=== PATIENT | male | born 1965 | race Two or more races ===

== ENCOUNTER 2017-01-26 13:17 | Inpatient (IN) | payer OTHER ==
[2017-01-26 14:04] VITALS: BMI 28.3
--- NOTE | 2017-01-26 20:36 | HP ---
CIWA Score - CIWA Score Nausea/Vomitin-Mild Nausea/No Vomiting Muscle Tremors: 4-Moderate,w/Arms Extend Anxiety: 4-Mod. Anxious/Guarded Agitation: 4-Moderately Restless Paroxysmal Sweats: 1-Minimal Palms Moist Orientation: 1-Uncertain about Date Tacttile Disturbances: 0-None Auditory Disturbances: 0-None Visual Disturbances: 0-None Headache: 0-None Present CIWA-Ar Total Score: 15 Admission ROS BHS - HPI Chief Complaint: withdrawal sx Allergies/Adverse Reactions: Allergies Allergy/AdvReac Type Severity Reaction Status Date / Time No Known Allergies Allergy Verified 01/26/17 20:07 History of Present Illness: 51 years old male with long history of alcohol nicotine dependence has hypertension and bipolar ii is admitted to detox Exam Limitations: No Limitations - Ebola screening Have you traveled outside of the country in the last 21 days: No Have you had contact with anyone from an Ebola affected area: No Have you been sick,other than usual withdrawal symptoms: No Do you have a fever: No - Review of Systems Constitutional: Chills, Changes in sleep, Weight Stable EENT: reports: No Symptoms Reported Respiratory: reports: Productive cough (yellowish) Cardiac: reports: No Symptoms Reported GI: reports: Nausea, Poor Fluid Intake, Indigestion, Abdominal cramping : reports: No Symptoms Reported Musculoskeletal: reports: No Symptoms Reported Integumentary: reports: No Symptoms Reported Neuro: reports: Seizure (01/24/17 last episode), Tremors Endocrine: reports: No Symptoms Reported Hematology: reports: No Symptoms Reported Psychiatric: reports: Judgement Intact, Anxious, Depressed Other Systems: Reviewed and Negative Patient History - Patient Medical History Hx Anemia: No Hx Asthma: No Hx Chronic Obstructive Pulmonary Disease (COPD): No Hx Cancer: No Hx Cardiac Disorders: No Hx Congestive Heart Failure: No Hx Hypertension: Yes Hx Hypercholesterolemia: No Hx Pacemaker: No HX Cerebrovascular Accident: No Hx Seizures: Yes (last 2 days ago) Hx Dementia: No Hx Diabetes: No Hx Gastrointestinal Disorders: No Hx Liver Disease: No Hx Genitourinary Disorders: No Hx Sexually Transmitted Disorders: No Hx Renal Disease (ESRD): No Hx Thyroid Disease: No Hx Human Immunodeficiency Virus (HIV): No Hx Hepatitis C: Yes Hx Depression: No Hx Suicide Attempt: Yes (cut the wrist 2 months ago) Hx Bipolar Disorder: Yes Hx Schizophrenia: No - Patient Surgical History Past Surgical History: No Hx Neurologic Surgery: No Hx Cataract Extraction: No Hx Cardiac Surgery: Yes (Open heart sx 2009) Hx Lung Surgery: No Hx Breast Surgery: No Hx Breast Biopsy: No Hx Abdominal Surgery: No Hx Appendectomy: No Hx Cholecystectomy: No Hx Genitourinary Surgery: No Hx Orthopedic Surgery: No Anesthesia Reaction: No - PPD History Previous Implant?: Yes Documented Results: Negative w/o proof Implanted On Prior [facility] Admission?: No PPD to be Administered?: Yes - Smoking Cessation Smoking history: Current every day smoker Have you smoked in the past 12 months: Yes Aproximately how many cigarettes per day: 1 Cigars Per Day: 0 Hx Chewing Tobacco Use: No Initiated information on smoking cessation: Yes 'Breaking Loose' booklet given: 01/26/17 - Substance & Tx. History Hx Alcohol Use: Yes Hx Substance Use: Yes Substance Use Type: Alcohol, Cocaine, Heroin, Marijuana, Opiates, Tranquilizers Hx Substance Use Treatment: Yes (01/2016 step up) - Substances Abused Alcohol Route: Oral Frequency: Daily Amount used: 1/2 PINT rum Age of first use: 16 Date of Last Use: 01/25/17 Marijuana/Hashish Route: Smoking Frequency: Daily Amount used: 1 BLUNT Age of first use: 16 Date of Last Use: 01/25/17 Benzodiazepine (Klonopin) Route: Oral Frequency: Daily Amount used: 1 mg Age of first use: 20 Date of Last Use: 01/25/17 Family Disease History - Family Disease History Family Disease History: Diabetes: Brother, Heart Disease: Sister, [place]: Father, Other: Mother Admission Physical Exam [facility] - Vital Signs Vital Signs: Vital Signs - 24 hr 01/26/17 14:00 Temperature 97.4 F L Pulse Rate 84 Respiratory 18 Rate Blood Pressure 139/112 - Physical General Appearance: Yes: Nourished, Appropriately Dressed, Mild Distress, Tremorous, Irritable, Sweating, Anxious HEENTM: Yes: Hearing grossly Normal, Normal ENT Inspection, Normocephalic, Normal Voice Respiratory: Yes: Chest Non-Tender, Lungs Clear, Normal Breath Sounds, No Respiratory Distress, No Accessory Muscle Use Neck: Yes: Supple, Trachea in good position Breast: Yes: Breasts Symetrical Cardiology: Yes: Regular Rhythm, Regular Rate, S1, S2 Abdominal: Yes: Non Tender, Soft Genitourinary: Yes: Within Normal Limits Back: Yes: Normal Inspection Musculoskeletal: Yes: full range of Motion, Gait Steady Extremities: Yes: Normal Range of Motion, Non-Tender, Tremors Neurological: Yes: Alert, Motor Strength 5/5, Normal Response, Depressed Affect Integumentary: Yes: Warm Lymphatic: Yes: Within Normal Limits - Diagnostic (1) Sedative, hypnotic or anxiolytic dependence with withdrawal, uncomplicated Current Visit: Yes Status: Acute (2) Alcohol dependence with uncomplicated withdrawal Current Visit: Yes Status: Acute (3) Methadone maintenance therapy patient Current Visit: Yes Status: Chronic Comment: 140 mg verification pending (4) Hepatitis C antibody test positive Current Visit: Yes Status: Chronic Comment: schedule to treat (5) Hypertension Current Visit: Yes Status: Chronic Qualifiers: Hypertension type: essential hypertension Qualified Code(s): I10 - Essential (primary) hypertension (6) Nicotine dependence Current Visit: Yes Status: Acute Qualifiers: Nicotine product type: cigarettes Substance use status: in withdrawal Qualified Code(s): F17.213 - Nicotine dependence, cigarettes, with withdrawal (7) Positive PPD, treated Current Visit: Yes Status: Resolved (8) Bipolar II disorder Current Visit: Yes Status: Suspected (9) S/P mitral valve replacement Current Visit: Yes Status: Resolved Cleared for Admission S - Detox or Rehab [facility] Level of Care: Medically Managed Detox Regimen/Protocol: Valium [facility] Breath Alcohol Content Breath Alcohol Content: 0 Urine Drug Screen - Results Drug Screen Negative: No Urine Drug Screen Results: THC-Marijuana, OPI-Opiates, BZO-Benzodiazepines, MTD- Methadone
[2017-01-26] MEDS ORDERED: MAGNESIUM CITRATE 300 ML BOTTLE PO PRN (20:43)
[2017-01-26] MEDS ORDERED: NICOTINE POLACRILEX 2 MG GUM BC PRN (20:43)
[2017-01-26] MEDS ORDERED: diphenhydrAMINE HCL 50 MG CAPSULE PO PRN (20:43)
[2017-01-26] MEDS ORDERED: diazePAM 5 MG TABLET PO ONE (20:43)
[2017-01-26] MEDS ORDERED: MAG HYDROX/AL HYDROX/SIMETH 30 ML UNIT-DOSE CUP PO PRN (20:43)
[2017-01-26] MEDS ORDERED: P-EPHED 60MG/TRIPROLIDI 2.5MG TABLET PO PRN (20:43)
[2017-01-26] MEDS ORDERED: LOPERAMIDE HCL 2 MG CAPSULE PO PRN (20:43)
[2017-01-26] MEDS ORDERED: MAGNESIUM HYDROX 2400MG/30ML ORAL SUSPENSION 30 ML CUP PO PRN (20:43)
[2017-01-26] MEDS: THIAMINE HCL 100 MG TABLET (FP) PO SCH (21:19)
[2017-01-26] MEDS: cloNIDine HCL 0.1 MG TABLET PO PRN (21:25)
[2017-01-26] MEDS: diazePAM 5 MG TABLET PO SCH (21:26)
[2017-01-27] MEDS: cloNIDine HCL 0.1 MG TABLET PO PRN (05:40)
[2017-01-27] MEDS: diazePAM 5 MG TABLET PO SCH ×3 (05:41→22:31)
[2017-01-27] MEDS ORDERED: METHADONE HCL 10 MG TABLET PO ONE (08:30)
[2017-01-27] MEDS ORDERED: METHADONE 120 MG, METHADONE 20 MG PO ONE (08:40)
[2017-01-27] MEDS ORDERED: METHADONE HCL 40 MG DISPERSABLE TABLET ONE (09:52)
[2017-01-27] MEDS ORDERED: METHADONE HCL 10 MG TABLET ONE (09:52)
[2017-01-27 09:55] LABS: MCH 31.9 pg (25.7-33.7); MCHC 32.9 g/dl (32.0-35.9); MEAN CELL VOLUME 96.9 fl (80-96); MEAN PLT VOLUME 8.7 fl (7.5-11.1); PLATELET COUNT 160 K/MM3 (134-434); RDW 14.1 % (11.9-15.9); WHITE BLOOD COUNT 5.2 K/mm3 (4.0-10.0)
[2017-01-27] MEDS ORDERED: DIVALPROEX SODIUM 250 MG TABLET E.C. (FP) PO SCH (10:00)
--- NOTE | 2017-01-27 10:05 | CONSULT ---
[facility] Psychiatric Consult - Data Date of interview: 01/27/17 Admission source: [facility] Identifying data: This is 51 years old male with psychiatric hospiytalization history, history of Bipolar disorder, intoxicated with: Alcohol, Klonopin. Cannabis and Nicotine, Opioids Substance Abuse History: - Smoking Cessation. Smoking history: Current every day smoker. Have you smoked in the past 12 months: Yes. Aproximately how many cigarettes per day: 1. Cigars Per Day: 0. Hx Chewing Tobacco Use: No. Initiated information on smoking cessation: Yes. 'Breaking Loose' booklet given : 01/26/17. - Substance & Tx. History. Hx Alcohol Use: Yes. Hx Substance Use : Yes. Substance Use Type: Alcohol, Cocaine, Heroin, Marijuana, Opiates, Tranquilizers. Hx Substance Use Treatment: Yes (01/2016 step up). - Substances Abused. Alcohol. Route: Oral. Frequency: Daily. Amount used: 1 /2 PINT rum. Age of first use: 16. Date of Last Use: 01/25/17. Marijuana/ Hashish. Route: Smoking. Frequency: Daily. Amount used: 1 BLUNT. Age of first use: 16. Date of Last Use: 01/25/17. Benzodiazepine (Klonopin). Route: Oral. Frequency: Daily. Amount used: 1 mg. Age of first use: 20. Date of Last Use: 01/25/17 Medical History: HepC+, PPD+ history, s/p Mitral Valve replacement, MMTP 140MG PER DAY Psychiatric History: Patient reports history of Bipolar Disorder with most recent psychiatric admission on 2015 after incident with his father and following suicidal attempt-was trying to jump trought the windows, reports no msuicidal history since then. Patient reports taking prior to admission: Wellbutrin XI 150mg poqd. Trazodone 50mg po qhs Physical/Sexual Abuse/Trauma History: Denies Additional Comment: Wellbutrin XI 150mg poqd. Trazodone 50mg po qhs Mental Status Exam - Mental Status Exam Alert and Oriented to: Person Cognitive Function: Fair Patient Appearance: Unkempt Mood: Anxious Affect: Mood Congruent Patient Behavior: Cooperative Speech Pattern: Appropriate Voice Loudness: Normal Thought Process: Goal Oriented Thought Disorder: Being Controlled Hallucinations: Denies Suicidal Ideation: Denies Homicidal Ideation: Denies Insight/Judgement: Fair Sleep: Difficulty falling asleep Appetite: Fair Muscle strength/Tone: Normal Gait/Station: Normal Additional Comments: Wellbutrin XI 150mg poqd. Trazodone 50mg po qhs Psychiatric Findings - Problem List ([place] 1, 2,3) (1) Alcohol dependence with uncomplicated withdrawal Current Visit: Yes Status: Acute (2) Nicotine dependence Current Visit: Yes Status: Acute Qualifiers: Nicotine product type: cigarettes Substance use status: in withdrawal Qualified Code(s): F17.213 - Nicotine dependence, cigarettes, with withdrawal (3) Sedative, hypnotic or anxiolytic dependence with withdrawal, uncomplicated Current Visit: Yes Status: Acute (4) Methadone maintenance therapy patient Current Visit: Yes Status: Chronic Comment: 140 mg verification pending (5) Bipolar II disorder Current Visit: Yes Status: Suspected (6) Drug-induced mood disorder Current Visit: Yes Status: Acute - Initial Treatment Plan Initial Treatment Plan: Wellbutrin XI 150mg poqd. Trazodone 50mg po qhs
[2017-01-27 10:06] LABS: ALBUMIN 2.9 g/dl (3.4-5.0); ANION GAP 7 (8-16); CALCIUM 8.7 mg/dL (8.5-10.1); CO2 29 mmol/L (21-32); GLUCOSE,RANDOM 93 mg/dL (74-106)
[2017-01-27 10:11] LABS: ALK PHOS 117 U/L (45-117); BILIRUBIN,TOTAL 0.4 mg/dL (0.2-1.0); COCKROFT - GAULT 94.39; CREATININE 0.9 mg/dL (0.7-1.3); SGOT/AST 58 U/L (15-37); SGPT/ALT 59 U/L (12-78)
[2017-01-27] MEDS: PRENATAL VITAMINS W/ FOLIC ACID TABLET (FP) PO SCH (10:20)
[2017-01-27] MEDS: ASPIRIN 81 MG CHEWABLE TABLETS PO SCH (10:20)
[2017-01-27] MEDS: NICOTINE 14 MG/24 HOURS TOPICAL PATCH TD SCH (10:20)
[2017-01-27] MEDS: diazePAM 5 MG TABLET PO PRN (10:24)
--- NOTE | 2017-01-27 10:36 | EKG ---
Test Reason : Blood Pressure : / mmHG Vent. Rate : 076 BPM Atrial Rate : 076 BPM P-R Int : 148 ms QRS Dur : 138 ms QT Int : 454 ms P-R-T Axes : 068 046 022 degrees QTc Int : 510 ms NORMAL SINUS RHYTHM WITH SINUS ARRHYTHMIA POSSIBLE LEFT ATRIAL ENLARGEMENT RIGHT BUNDLE BRANCH BLOCK T WAVE ABNORMALITY, CONSIDER LATERAL ISCHEMIA ABNORMAL ECG NO PREVIOUS ECGS AVAILABLE Confirmed by SLADE WU MD ([id number]) on 01/27/2017 10:36:27 AM Referred By: Confirmed By:SLADE WU MD
--- NOTE | 2017-01-27 10:36 | EKG ---
Test Reason : Blood Pressure : / mmHG Vent. Rate : 067 BPM Atrial Rate : 067 BPM P-R Int : 156 ms QRS Dur : 136 ms QT Int : 470 ms P-R-T Axes : 074 053 039 degrees QTc Int : 496 ms SINUS RHYTHM WITH MARKED SINUS ARRHYTHMIA POSSIBLE LEFT ATRIAL ENLARGEMENT RIGHT BUNDLE BRANCH BLOCK ABNORMAL ECG WHEN COMPARED WITH ECG OF 26-JAN-2017 20:29, NONSPECIFIC T WAVE ABNORMALITY HAS REPLACED INVERTED T WAVES IN ANTERIOR LEADS Confirmed by SLADE WU MD ([id number]) on 01/27/2017 10:36:36 AM Referred By: Confirmed By:SLADE WU MD
[2017-01-27 11:14] LABS: HIV 1 & 2 AB NEGATIVE; HIV 1 AGp24 NEGATIVE
--- NOTE | 2017-01-27 11:31 | PN ---
[facility] CIWA - CIWA Score Nausea/Vomitin-No Nausea/No Vomiting Muscle Tremors: 5 Anxiety: 5 Agitation: 5 Paroxysmal Sweats: 1-Minimal Palms Moist Orientation: 0-Oriented Tacttile Disturbances: 3-Moderate Itch/Numb/Burn Auditory Disturbances: 0-None Visual Disturbances: 0-None Headache: 0-None Present CIWA-Ar Total Score: 19 S Progress Note (SOAP) Subjective: ANXIETY,IRRITABILITY,RESTLESSNESS,TREMORS, INTERMITTENT SLEEP. Objective: 01/27/17 11:30 Vital Signs Temperature 96.2 F L 01/27/17 10:23 Pulse Rate 74 01/27/17 10:23 Respiratory Rate 18 01/27/17 10:23 Blood Pressure 163/104 01/27/17 10:23 O2 Sat by Pulse Oximetry (%) Laboratory Last Values WBC 5.2 K/mm3 (4.0-10.0) 01/27/17 07:00 RBC 4.49 M/mm3 (4.00-5.60) 01/27/17 07:00 Hgb 14.3 GM/dL (11.7-16.9) 01/27/17 07:00 Hct 43.5 % (35.4-49) 01/27/17 07:00 MCV 96.9 fl (80-96) H 01/27/17 07:00 MCHC 32.9 g/dl (32.0-35.9) 01/27/17 07:00 RDW 14.1 % (11.9-15.9) 01/27/17 07:00 Plt Count 160 K/MM3 (134-434) 01/27/17 07:00 MPV 8.7 fl (7.5-11.1) 01/27/17 07:00 Sodium 139 mmol/L (136-145) 01/27/17 07:00 Potassium 4.0 mmol/L (3.5-5.1) 01/27/17 07:00 Chloride 103 mmol/L (98-107) 01/27/17 07:00 Carbon Dioxide 29 mmol/L (21-32) 01/27/17 07:00 Anion Gap 7 (8-16) L 01/27/17 07:00 BUN 28 mg/dL (7-18) H 01/27/17 07:00 Creatinine 0.9 mg/dL (0.7-1.3) 01/27/17 07:00 Creat Clearance w eGFR > 60 (>60) 01/27/17 07:00 Random Glucose 93 mg/dL (74-106) 01/27/17 07:00 Calcium 8.7 mg/dL (8.5-10.1) 01/27/17 07:00 Total Bilirubin 0.4 mg/dL (0.2-1.0) 01/27/17 07:00 AST 58 U/L (15-37) H 01/27/17 07:00 ALT 59 U/L (12-78) 01/27/17 07:00 Alkaline Phosphatase 117 U/L (45-117) 01/27/17 07:00 Total Protein 7.0 g/dl (6.4-8.2) 01/27/17 07:00 Albumin 2.9 g/dl (3.4-5.0) L 01/27/17 07:00 HIV 1&2 Antibody Screen Negative 01/27/17 07:00 HIV P24 Antigen Negative 01/27/17 07:00 Assessment: 01/27/17 11:30 WITHDRAWAL SX Plan: CONTINUE DETOX INCREASE PO FLUIDS.
[2017-01-27] MEDS ORDERED: MIRTAZAPINE 15 MG TABLET (FP) PO SCH (22:00)
[2017-01-27] MEDS ORDERED: cloNIDine HCL 0.1 MG TABLET PO SCH ×2 (22:00)
[2017-01-27] MEDS: THIAMINE HCL 100 MG TABLET (FP) PO SCH (22:31)
[2017-01-27] MEDS: traZODone HCL 100 MG TABLET (FP) PO SCH (22:31)
[2017-01-27] MEDS: MENTHOL/PHENOL 1 EACH UD MM PRN (22:32)
[2017-01-28] MEDS ORDERED: METHADONE HCL 40 MG DISPERSABLE TABLET ONE (04:15)
[2017-01-28] MEDS ORDERED: METHADONE HCL 10 MG TABLET ONE (04:15)
[2017-01-28] MEDS: METHADONE 120 MG, METHADONE 20 MG PO SCH (05:37)
[2017-01-28] MEDS: diazePAM 5 MG TABLET PO PRN ×2 (05:37→12:36)
[2017-01-28] MEDS ORDERED: METHADONE HCL 10 MG TABLET PO SCH (06:00)
[2017-01-28] MEDS ORDERED: amLODIPine BESYLATE 5 MG TABLET (FP) PO SCH (07:15)
--- NOTE | 2017-01-28 07:21 | PN ---
[facility] Progress Note Note: PT SEEN FOR ON GOING HTN CLIENT REPORTS H/O BUT DENIES ASSOC. SX'S CHENG, N/V/, DIZZINESS, C.P. , SOB HAS BEEN ON CLONIDINE SINCE ADMISSION WILL START ON NORVASC 5 MG DAILY C/W CLONIDINE 0.1 MG PRN FOR UNRELIEVED OPIATE WITHDRAWAL SX'S Vital Signs (72 hours) 01/26/17 01/26/17 01/27/17 14:00 22:13 00:45 Temperature 97.4 F L 97 F L Pulse Rate 84 83 Respiratory 18 20 18 Rate Blood Pressure 139/112 160/102 01/27/17 01/27/17 01/27/17 03:30 06:56 10:23 Temperature 97.2 F L 96.2 F L Pulse Rate 75 74 Respiratory 18 18 18 Rate Blood Pressure 177/107 163/104 01/27/17 01/27/17 01/27/17 13:34 14:05 18:19 Temperature 96.2 F L 96.2 F L 97.5 F L Pulse Rate 68 68 73 Respiratory 18 16 18 Rate Blood Pressure 113/78 113/78 105/75 01/27/17 01/28/17 01/28/17 22:09 00:30 03:30 Temperature 96.7 F L Pulse Rate 75 Respiratory 16 18 18 Rate Blood Pressure 116/87 01/28/17 06:30 Temperature 96.4 F L Pulse Rate 75 Respiratory 18 Rate Blood Pressure 169/115
[2017-01-28] MEDS ORDERED: amLODIPine BESYLATE 5 MG TABLET (FP) PO ONE (08:00)
[2017-01-28] MEDS: ACETAMINOPHEN 325 MG TABLET (FP) PO PRN ×2 (08:02→12:36)
[2017-01-28] MEDS: PRENATAL VITAMINS W/ FOLIC ACID TABLET (FP) PO SCH (09:57)
[2017-01-28] MEDS: ASPIRIN 81 MG CHEWABLE TABLETS PO SCH (09:57)
[2017-01-28] MEDS: diazePAM 5 MG TABLET PO SCH ×2 (09:57→22:16)
[2017-01-28] MEDS: NICOTINE 14 MG/24 HOURS TOPICAL PATCH TD SCH (09:58)
--- NOTE | 2017-01-28 09:58 | PN ---
S CIWA - CIWA Score Nausea/Vomitin-Mild Nausea/No Vomiting Muscle Tremors: 4-Moderate,w/Arms Extend Anxiety: 4-Mod. Anxious/Guarded Agitation: 3 Paroxysmal Sweats: 3 Orientation: 0-Oriented Tacttile Disturbances: 0-None Auditory Disturbances: 0-None Visual Disturbances: 0-None Headache: 0-None Present CIWA-Ar Total Score: 15 BHS Progress Note (SOAP) Subjective: Anxiety,tremors,sweating,interrupted sleep,restless. Objective: 01/28/17 09:56 Vital Signs - 8 hr 01/28/17 01/28/17 03:30 06:30 Temperature 96.4 F L Pulse Rate 75 Respiratory 18 18 Rate Blood Pressure 169/115 Laboratory Tests 01/27/17 01/27/17 01/27/17 07:00 07:00 07:00 WBC 5.2 RBC 4.49 Hgb 14.3 Hct 43.5 MCV 96.9 H MCHC 32.9 RDW 14.1 Plt Count 160 MPV 8.7 Sodium 139 Potassium 4.0 Chloride 103 Carbon Dioxide 29 Anion Gap 7 L BUN 28 H Creatinine 0.9 Creat Clearance w eGFR > 60 Random Glucose 93 Calcium 8.7 Total Bilirubin 0.4 AST 58 H ALT 59 Alkaline Phosphatase 117 Total Protein 7.0 Albumin 2.9 L RPR Titer HIV 1&2 Antibody Screen Negative HIV P24 Antigen Negative 01/27/17 07:00 WBC RBC Hgb Hct MCV MCHC RDW Plt Count MPV Sodium Potassium Chloride Carbon Dioxide Anion Gap BUN Creatinine Creat Clearance w eGFR Random Glucose Calcium Total Bilirubin AST ALT Alkaline Phosphatase Total Protein Albumin RPR Titer Nonreactive HIV 1&2 Antibody Screen HIV P24 Antigen labs noted Assessment: 01/28/17 09:57 Withdrawal sx. Plan: Continue detox Increase norvasc to bid
[2017-01-28 13:04] LABS: URINE APPEARANCE CLEAR; URINE BILIRUBIN NEGATIVE (NEGATIVE); URINE BLOOD NEGATIVE (NEGATIVE); URINE COLOR LTYELLOW; URINE GLUCOSE (UA) NEGATIVE (NEGATIVE); URINE KETONE NEGATIVE (NEGATIVE); URINE LEUK ESTERASE NEGATIVE (NEGATIVE); URINE NITRITE NEGATIVE (NEGATIVE); URINE PROTEIN NEGATIVE (NEGATIVE); URINE UROBILINOGEN NEGATIVE E.U./dl (0.2-1.0)
[2017-01-28] MEDS: THIAMINE HCL 100 MG TABLET (FP) PO SCH (22:16)
[2017-01-28] MEDS: traZODone HCL 100 MG TABLET (FP) PO SCH (22:16)
[2017-01-28] MEDS: amLODIPine BESYLATE 5 MG TABLET (FP) PO SCH (22:16)
[2017-01-29] MEDS ORDERED: METHADONE HCL 10 MG TABLET ONE (04:42)
[2017-01-29] MEDS ORDERED: METHADONE HCL 40 MG DISPERSABLE TABLET ONE (04:42)
[2017-01-29] MEDS: METHADONE 120 MG, METHADONE 20 MG PO SCH (05:30)
[2017-01-29] MEDS: diazePAM 5 MG TABLET PO PRN ×2 (05:30→17:24)
[2017-01-29] MEDS: guaiFENesin/D-METHORPHAN HB 10 ML UNIT-DOSE CUPS PO PRN ×2 (05:31→22:29)
[2017-01-29] MEDS: cloNIDine HCL 0.1 MG TABLET PO PRN ×2 (06:10→22:29)
[2017-01-29] MEDS ORDERED: amLODIPine BESYLATE 5 MG TABLET (FP) PO SCH (10:00)
[2017-01-29] MEDS: PRENATAL VITAMINS W/ FOLIC ACID TABLET (FP) PO SCH (10:27)
[2017-01-29] MEDS: NICOTINE 14 MG/24 HOURS TOPICAL PATCH TD SCH (10:27)
[2017-01-29] MEDS: amLODIPine BESYLATE 5 MG TABLET (FP) PO SCH ×2 (10:27→22:29)
[2017-01-29] MEDS: diazePAM 5 MG TABLET PO SCH ×2 (10:27→22:29)
[2017-01-29] MEDS: ASPIRIN 81 MG CHEWABLE TABLETS PO SCH (10:27)
--- NOTE | 2017-01-29 20:10 | PN ---
[facility] Progress Note (SOAP) Subjective: Tremors, Sweating. Objective: PT. A & O X 3, OBSERVED AMBULATING ON UNIT. NO ACUTE DISTRESS. PT. DENIES CHEST PAIN. 01/29/17 20:08 Vital Signs Temperature 96.8 F L 01/29/17 17:43 Pulse Rate 77 01/29/17 17:43 Respiratory Rate 16 01/29/17 17:43 Blood Pressure 104/64 01/29/17 17:43 O2 Sat by Pulse Oximetry (%) Laboratory Tests 01/27/17 01/27/17 01/27/17 07:00 07:00 07:00 WBC 5.2 RBC 4.49 Hgb 14.3 Hct 43.5 MCV 96.9 H MCHC 32.9 RDW 14.1 Plt Count 160 MPV 8.7 Sodium 139 Potassium 4.0 Chloride 103 Carbon Dioxide 29 Anion Gap 7 L BUN 28 H Creatinine 0.9 Creat Clearance w eGFR > 60 Random Glucose 93 Calcium 8.7 Total Bilirubin 0.4 AST 58 H ALT 59 Alkaline Phosphatase 117 Total Protein 7.0 Albumin 2.9 L Urine Color Urine Appearance Urine pH Ur Specific [place] Urine Protein Urine Glucose (UA) Urine Ketones Urine Blood Urine Nitrite Urine Bilirubin Urine Urobilinogen Ur Leukocyte Esterase RPR Titer HIV 1&2 Antibody Screen Negative HIV P24 Antigen Negative 01/27/17 01/28/17 07:00 10:00 WBC RBC Hgb Hct MCV MCHC RDW Plt Count MPV Sodium Potassium Chloride Carbon Dioxide Anion Gap BUN Creatinine Creat Clearance w eGFR Random Glucose Calcium Total Bilirubin AST ALT Alkaline Phosphatase Total Protein Albumin Urine Color Ltyellow Urine Appearance Clear Urine pH 5.0 Ur Specific [place] 1.010 Urine Protein Negative Urine Glucose (UA) Negative Urine Ketones Negative Urine Blood Negative Urine Nitrite Negative Urine Bilirubin Negative Urine Urobilinogen Negative Ur Leukocyte Esterase Negative RPR Titer Nonreactive HIV 1&2 Antibody Screen HIV P24 Antigen LABS NOTED. Assessment: 01/29/17 20:08 WITHDRAWAL SYMPTOMS. 01/29/17 20:09 Plan: CONTINUE DETOX. ADVISED PATIENT TO FOLLOWUP WITH HELP DESK REP AFTER DISCHARGE FROM DETOX FOR GENERAL MEDICAL ASSESSMENT AND FOR ELEVATED ADMISSION AST AND BUN LEVELS.
[2017-01-29] MEDS: MENTHOL/PHENOL 1 EACH UD MM PRN (22:29)
[2017-01-29] MEDS: traZODone HCL 100 MG TABLET (FP) PO SCH (22:29)
[2017-01-29] MEDS: THIAMINE HCL 100 MG TABLET (FP) PO SCH (22:29)
[2017-01-30] MEDS ORDERED: METHADONE HCL 10 MG TABLET ONE (03:10)
[2017-01-30] MEDS ORDERED: METHADONE HCL 40 MG DISPERSABLE TABLET ONE (03:11)
[2017-01-30] MEDS: cloNIDine HCL 0.1 MG TABLET PO PRN (05:41)
[2017-01-30] MEDS: METHADONE 120 MG, METHADONE 20 MG PO SCH (05:41)
[2017-01-30 06:51] VITALS: BP 131/92; PULSE 83; TEMP 98
[2017-01-30] MEDS ORDERED: diazePAM 5 MG TABLET PO SCH (10:00)
--- NOTE | 2017-01-30 11:56 | DS ---
[facility] Detox Discharge Summary Admission Date: 01/26/17 Discharge Date: 01/30/17 - History Present History: Alcohol Dependence, Sedative Dependence, MMTP Pertinent Past History: HTN Seizure disorder Hepatitis C - Physical Exam Results Vital Signs: Vital Signs Temperature 98.0 F 01/30/17 06:50 Pulse Rate 83 01/30/17 06:50 Respiratory Rate 20 01/30/17 06:50 Blood Pressure 131/92 01/30/17 06:50 O2 Sat by Pulse Oximetry (%) Pertinent Admission Physical Exam Findings: Withdrawal symptoms Laboratory Tests 01/27/17 01/27/17 01/27/17 07:00 07:00 07:00 WBC 5.2 RBC 4.49 Hgb 14.3 Hct 43.5 MCV 96.9 H MCHC 32.9 RDW 14.1 Plt Count 160 MPV 8.7 Sodium 139 Potassium 4.0 Chloride 103 Carbon Dioxide 29 Anion Gap 7 L BUN 28 H Creatinine 0.9 Creat Clearance w eGFR > 60 Random Glucose 93 Calcium 8.7 Total Bilirubin 0.4 AST 58 H ALT 59 Alkaline Phosphatase 117 Total Protein 7.0 Albumin 2.9 L Urine Color Urine Appearance Urine pH Ur Specific [place] Urine Protein Urine Glucose (UA) Urine Ketones Urine Blood Urine Nitrite Urine Bilirubin Urine Urobilinogen Ur Leukocyte Esterase RPR Titer HIV 1&2 Antibody Screen Negative HIV P24 Antigen Negative 01/27/17 01/28/17 07:00 10:00 WBC RBC Hgb Hct MCV MCHC RDW Plt Count MPV Sodium Potassium Chloride Carbon Dioxide Anion Gap BUN Creatinine Creat Clearance w eGFR Random Glucose Calcium Total Bilirubin AST ALT Alkaline Phosphatase Total Protein Albumin Urine Color Ltyellow Urine Appearance Clear Urine pH 5.0 Ur Specific [place] 1.010 Urine Protein Negative Urine Glucose (UA) Negative Urine Ketones Negative Urine Blood Negative Urine Nitrite Negative Urine Bilirubin Negative Urine Urobilinogen Negative Ur Leukocyte Esterase Negative RPR Titer Nonreactive HIV 1&2 Antibody Screen HIV P24 Antigen Labs noted: bun 28; noted with azotemia and encouraged to drink lots of water - Treatment Hospital Course: Detox Protocol Followed, Detoxed Safely, Responded well, Discharged Condition Good - Medication Discharge Medications: Ambulatory Orders Bupropion HCl [Bupropion HCl Sr] 150 mg PO DAILY 01/26/17 Clonazepam [Klonopin] 1 mg PO BID 01/26/17 Trazodone HCl [Desyrel -] 50 mg PO HS 01/26/17 Bupropion HCl [Wellbutrin Xl -] 150 mg PO DAILY #30 tab 01/27/17 Divalproex [Depakote -] 250 mg PO BID #60 tab 01/27/17 Mirtazapine [Remeron -] 15 mg PO HS #30 tablet 01/27/17 Trazodone HCl [Desyrel -] 100 mg PO HS #30 tablet 01/27/17 - Diagnosis (1) Alcohol dependence with uncomplicated withdrawal Status: Acute (2) Nicotine dependence Status: Chronic Qualifiers: Nicotine product type: cigarettes Substance use status: in withdrawal Qualified Code(s): F17.213 - Nicotine dependence, cigarettes, with withdrawal (3) Sedative, hypnotic or anxiolytic dependence with withdrawal, uncomplicated Status: Acute (4) Hepatitis C antibody test positive Status: Chronic (5) Hypertension Status: Chronic Qualifiers: Hypertension type: essential hypertension Qualified Code(s): I10 - Essential (primary) hypertension (6) Methadone maintenance therapy patient Status: Chronic (7) Azotemia Status: Acute (8) Bipolar II disorder Status: Chronic (9) Seizure Status: Acute - AMA Did Patient Leave Against Medical Advice: No
== END 2017-01-30 09:46 | disposition home or self-care (01) | DRG 773 ==
LOC: YASAS 13:17 → Y3N 19:51
PROVIDERS: ADMIT Internal Medicine; ATTEND Internal Medicine
PROC: HZ2ZZZZ Detoxification Services for Substance Abuse Treatment (ICD-10-PCS; principal; 2017-01-26)
DX: F10.230 Alcohol dependence with withdrawal, uncomplicated (principal); F11.20 Opioid dependence, uncomplicated; F13.230 Sedative, hypnotic or anxiolytic dependence with withdrawal, uncomplicated; F19.24 Other psychoactive substance dependence with psychoactive substance-induced mood disorder; F17.210 Nicotine dependence, cigarettes, uncomplicated; F31.81 Bipolar II disorder; B18.2 Chronic viral hepatitis C; I10 Essential (primary) hypertension; R76.11 Nonspecific reaction to tuberculin skin test without active tuberculosis; R79.89 Other specified abnormal findings of blood chemistry; Z86.69 Personal history of other diseases of the nervous system and sense organs; Z95.2 Presence of prosthetic heart valve; Z91.5 Personal history of self-harm; Z59.0 Homelessness
CPT/HCPCS: 36415; 71020-TC; 80053; 81003; 85027; 86593; 87389; 93005; 93010

== ENCOUNTER 2020-05-17 12:13 | Inpatient (IN) | payer OTHER ==
--- OUTSIDE RECORDS SUMMARY | 2020-05-17 12:18 | XMS ---
:1965 [facility] Support Name Relationship Address Phone UE Unavailable Unavailable Unavailable ALLISON CURIEL SISTER N/A [place] [id number] Re-disclosure Warning The records that you are about to access may contain information from federally- assisted alcohol or drug abuse programs. If such information is present, then the following federally mandated warning applies: This information has been disclosed to you from records protected by federal confidentiality rules (42 CFR part 2). The federal rules prohibit you from making any further disclosure of this information unless further disclosure is expressly permitted by the written consent of the person to whom it pertains or as otherwise permitted by 42 CFR part 2. A general authorization for the release of medical or other information is NOT sufficient for this purpose. The Federal rules restrict any use of the information to criminally investigate or prosecute any alcohol or drug abuse patient.The records that you are about to access may contain highly sensitive health information, the redisclosure of which is protected by Article 27-F of the [facility] Public Health law. If you continue you may haveaccess to information: Regarding HIV / AIDS; Provided by facilities licensed or operated by the [facility] Office of Mental Health; or Provided by the [facility] Office for People With Developmental Disabilities. If such information is present, then the following [facility] mandated warning applies: This information has been disclosed to you from confidential records which are protected by state law. State law prohibits you from making any further disclosure of this information without the specific written consent of the person to whom it pertains, or as otherwise permitted by law. Any unauthorized further disclosure in violation of state law may result in a fine or fpc sentence or both. A general authorization for the release of medical or other information is NOT sufficient authorization for further disclosure. Insurance Providers Payer name Policy type Policy ID Covered Covered green party's Policy P carolin / Coverage green party ID relationship to [employer] type [facility] [id number] [address] [place] [address] NON CAP
--- NOTE | 2020-05-17 17:15 | BHS.RME ---
Substance Use & Tx History - Substance Use History Alcohol Substance amount: 6 of 44 0zs beer Frequency of use: Daily Substance route: Oral Date of Last Use: 05/17/20 Cocaine- Powder Frequency of use: Once a month Substance route: Inhalation (ex: sniffing or snorting) Date of Last Use: 05/15/20 - Last Treatment Date of last treatment: 02/2020 [facility] not completed Where was last treatment: Detox
--- NOTE | 2020-05-17 17:42 | HP ---
CIWA Score Nausea/Vomitin Muscle Tremors: 3 Anxiety: 3 Agitation: 3 Paroxysmal Sweats: 1-Minimal Palms Moist Orientation: 0-Oriented Tacttile Disturbances: 1-Very Mild Itch/Numbness Auditory Disturbances: 0-None Visual Disturbances: 0-None Headache: 2-Mild CIWA-Ar Total Score: 15 - Admission Criteria OASAS Guidelines: Admission for Medically Managed Detox: Requires at least one of the followin. CIWA greater than 12 2. Seizures within the past 24 hours 3. Delirium tremens within the past 24 hours 4. Hallucinations within the past 24 hours 5. Acute intervention needed for co occurring medical disorder 6. Acute intervention needed for co occurring psychiatric disorder 7. Severe withdrawal that cannot be handled at a lower level of care (continued vomiting, continued diarrhea, abnormal vital signs) requiring intravenous medication and/or fluids 8. Admitting History and Physical - Admission Chief Complaint: i need help to stop drinking alcohol History of Present Illness: this 54 years old male with alcohol dependence cocaine abused,heroin abused,mmtp 130 mgs/day,last medicated today, History Source: Patient Limitations to Obtaining History: No Limitations - Past Medical History Cardiovascular: Yes: HTN, Hyperlipdemia Hepatobiliary: Yes: Hepatitis C Psych: Yes: Bipolar - Past Surgical History Additional Past Surgical History: opn heart surgery in 2010 cut tendon righr wrist in 2017 with deformity - Smoking History Smoking history: Current every day smoker Have you smoked in the past 12 months: Yes Aproximately how many cigarettes per day: 1 - Alcohol/Substance Use Hx Alcohol Use: Yes - Social History Usual Living Arrangement: Yes: Other (snf) Do you think of yourself as: Straight/Heterosexual Occupation: unemployed History of Recent Travel: No Other Social History: unemployed,living in the snf,denied legal issue,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 Admission ROS BHS - HPI Chief Complaint: i need help to stop drinking alcohol,cocaine ,heroin abused,on bezo prescribed Allergies/Adverse Reactions: Allergies Allergy/AdvReac Type Severity Reaction Status Date / Time No Known Allergies Allergy Verified 05/17/20 19:17 History of Present Illness: this 54 years old male with alcohol dependence,cocaine abused,heroin abused,on methadone maintenance 130 mgs/day,last medicated today at [facility], seen in [facility] last night,possible seizure or syncope i stop shoed patient is on clonazepam 1 mg po tid last filled on 04/21/2020 90 tablet hypertension,hypercholesterolemia, s/p open heart surgery in 2009 a [facility] s/p surgery for cut of right tendon right wrist with deformity no significant period of sobriety patient understood that he will get methadone 20 mgs po at 0600 on Tuesday05/18/20 until able to verify to dose by his methadone program unable to verify his medications on his pharmacy Exam Limitations: No Limitations - Ebola screening Have you traveled outside of the country in the last 21 days: No Have you had contact with anyone from an Ebola affected area: No Have you been sick,other than usual withdrawal symptoms: No Do you have a fever: No - Review of Systems Constitutional: Malaise, Night Sweats, Changes in sleep EENT: reports: Nose Congestion Respiratory: reports: No Symptoms reported Cardiac: reports: No Symptoms Reported GI: reports: Nausea, Poor Appetite, Abdominal cramping : reports: No Symptoms Reported Musculoskeletal: reports: Back Pain, Muscle Pain Integumentary: reports: Dryness Neuro: reports: Tremors Endocrine: reports: No Symptoms Reported Hematology: reports: No Symptoms Reported Psychiatric: reports: No Sypmtoms Reported, Judgement Intact, Mood/Affect Appropiate, Orientated x3, other (biploar disorder) Patient History - Patient Medical History Hx Anemia: No Hx Asthma: No Hx Chronic Obstructive Pulmonary Disease (COPD): No Hx Cancer: No Hx Cardiac Disorders: Yes (open heart surgery in ) Hx Congestive Heart Failure: No Hx Hypertension: Yes Hx Hypercholesterolemia: No Hx Pacemaker: No HX Cerebrovascular Accident: No Hx Seizures: Yes (last night seen in [place]) Hx Dementia: No Hx Diabetes: No Hx Gastrointestinal Disorders: No Hx Liver Disease: No Hx Genitourinary Disorders: No Hx Sexually Transmitted Disorders: No Hx Renal Disease (ESRD): No Hx Thyroid Disease: No Hx Human Immunodeficiency Virus (HIV): No Hx Hepatitis C: Yes Hx Depression: No Hx Suicide Attempt: Yes (cut the wrist right 2017 cut the tendon) Hx Bipolar Disorder: Yes Hx Schizophrenia: No Other Medical History: no suicidal,no hiomicidal - Patient Surgical History Past Surgical History: No Hx Neurologic Surgery: No Hx Cataract Extraction: No Hx Cardiac Surgery: Yes ( Open herat surgery in 2009 at [facility]) Hx Lung Surgery: No Hx Breast Surgery: No Hx Breast Biopsy: No Hx Abdominal Surgery: No Hx Appendectomy: No Hx Cholecystectomy: No Hx Genitourinary Surgery: No Hx Section: No Hx Orthopedic Surgery: Yes (cut tedon of right wrist in 2017 treated at [facility]) Anesthesia Reaction: No - PPD History Previous Implant?: Yes Documented Results: Negative w/o proof Implanted On [facility] Admission?: No PPD to be Administered?: Yes - Smoking Cessation Smoking history: Current every day smoker Have you smoked in the past 12 months: Yes Aproximately how many cigarettes per day: 1 Cigars Per Day: 0 Hx Chewing Tobacco Use: No Initiated information on smoking cessation: Yes 'Breaking Loose' booklet given: 05/17/20 - Substance & Tx. History Hx Alcohol Use: Yes Hx Substance Use: Yes Substance Use Type: Alcohol, Cocaine Hx Substance Use Treatment: Yes (09.10 [facility] not [facility]) - Substances abused Alcohol Substance route: Oral Frequency: Daily Amount used: 6 of 44 ozs of beer Age of first use: 14 Date of last use: 05/17/20 Cocaine Substance route: Inhalation Frequency: 1-3 times last 30 days (10$) Amount used: 10$ Age of first use: 16 Date of last use: 05/15/20 Heroin Substance route: Inhalation Frequency: 1-2 times per week Amount used: 1 bag Age of first use: 16 Date of last use: 05/15/20 Admission Physical Exam BHS - Vital Signs Vital Signs: bp 118/77,p92,r18,t95.6,pulse ox 98%,ankur 0,12 - Physical General Appearance: Yes: Moderate Distress, Tremorous, Irritable, Anxious HEENTM: Yes: Normal ENT Inspection, LILIAN, Pharynx Normal Respiratory: Yes: Lungs Clear, Normal Breath Sounds, No Respiratory Distress Neck: Yes: Within Normal Limits, Supple, Trachea in good position Breast: Yes: Within Normal Limits Cardiology: Yes: Within Normal Limits, Regular Rate, S1, S2, Murmur, Surgical Scar (midsterna scar) Abdominal: Yes: Within Normal Limits, Normal Bowel Sounds, Non Tender, Flat, Soft Genitourinary: Yes: Within Normal Limits Back: Yes: Muscle Spasm Musculoskeletal: Yes: Back pain, Muscle Pain Extremities: Yes: Tremors Neurological: Yes: fleet sales associate II-XII NML intact, Fully Oriented, Alert, Motor Strength 5/5 Integumentary: Yes: Dry Lymphatic: Yes: Within Normal Limits - Diagnostic (1) Alcohol dependence with uncomplicated withdrawal Current Visit: No Status: Acute (2) Seizure Current Visit: No Status: Acute (3) Bipolar II disorder Current Visit: No Status: Chronic (4) Hypertension Current Visit: No Status: Chronic Qualifiers: Hypertension type: essential hypertension Qualified Code(s): I10 - Essential (primary) hypertension (5) Methadone maintenance therapy patient Current Visit: No Status: Chronic Comment: 140 mg verification pending (6) Nicotine dependence Current Visit: No Status: Chronic Qualifiers: Nicotine product type: cigarettes Substance use status: in withdrawal Qualified Code(s): F17.213 - Nicotine dependence, cigarettes, with withdrawal (7) History of open heart surgery Current Visit: Yes Status: Acute (8) Hepatitis C Current Visit: Yes Status: Acute (9) Cocaine abuse Current Visit: Yes Status: Acute (10) Heroin abuse Current Visit: Yes Status: Acute Cleared for Admission S - Detox or Rehab [facility] Level of Care: Medically Managed Detox Regimen/Protocol: Librium Inpatient Rehab Admission - Rehab Decision to Admit Inpatient rehab admission?: No
[2020-05-17] MEDS ORDERED: METHOCARBAMOL 500 MG TABLET PO PRN (18:18)
[2020-05-17] MEDS ORDERED: IBUPROFEN 400 MG TABLET (FP) PO PRN (18:18)
[2020-05-17] MEDS ORDERED: ONDANSETRON *ODT* 4 MG TABLET SL PRN (18:18)
[2020-05-17] MEDS ORDERED: MAGNESIUM HYDROX 2400MG/30ML ORAL SUSPENSION 30 ML CUP PO PRN (18:18)
[2020-05-17] MEDS ORDERED: ACETAMINOPHEN 325 MG TABLET (FP) PO PRN ×2 (18:18)
[2020-05-17] MEDS ORDERED: BISMUTH SUBSALICYLATE 524 MG/30 ML UD PO PRN (18:18)
[2020-05-17] MEDS ORDERED: MAGNESIUM CITRATE 300 ML BOTTLE PO PRN (18:18)
[2020-05-17] MEDS ORDERED: MAG HYDROX/AL HYDROX/SIMETH 30 ML UNIT-DOSE CUP PO PRN (18:18)
[2020-05-17] MEDS ORDERED: chlordiazePOXIDE HCL 25 MG CAPSULE PO PRN (18:18)
[2020-05-17] MEDS ORDERED: MENTHOL/PHENOL 1 EACH UD MM PRN (18:18)
[2020-05-17 18:21] VITALS: BMI 26.3
--- OUTSIDE RECORDS SUMMARY | 2020-05-17 19:17 | XMS ---
:1965 [facility] Organization [facility] Support Name Relationship Address Phone UE Unavailable Unavailable Unavailable ALLISON CURIEL SISTER N/A [place] [phone] Re-disclosure Warning The records that you are [...] is protected by Article 27-F of the [facility] Public Health law. If you continue you may haveaccess to information: Regarding HIV / AIDS; Provided by facilities licensed or operated by the [facility] Office of Mental Health; or Provided by the [facility] Office for People With Developmental Disabilities. If such information is present, then the following [facility] mandated warning applies: This information has been [...] law may result in a fine or nursing home sentence or both. A general authorization for the release of medical or other information is NOT sufficient authorization for further disclosure. Insurance Providers Payer name Policy type Policy ID Covered Covered green party's Policy P carolin / Coverage green party ID relationship to [employer] ormation type marshall [facility] [id number] [address] [place] [id number] NON CAP
[2020-05-17] MEDS: chlordiazePOXIDE HCL 25 MG CAPSULE PO SCH (22:07)
[2020-05-17] MEDS: MELATONIN 5 MG TABLETS PO SCH (22:07)
[2020-05-17] MEDS: hydrOXYzine PAMOATE 25 MG CAPSULE (FP) PO SCH (22:07)
[2020-05-17] MEDS: THIAMINE HCL 100 MG TABLET (FP) PO SCH (22:07)
[2020-05-18] MEDS ORDERED: METHADONE HCL 10 MG TABLET PO ONE (06:00)
[2020-05-18] MEDS: chlordiazePOXIDE HCL 25 MG CAPSULE PO SCH ×4 (06:48→22:19)
[2020-05-18] MEDS: hydrOXYzine PAMOATE 25 MG CAPSULE (FP) PO SCH ×5 (06:48→22:19)
[2020-05-18] MEDS: PRENATAL VITAMINS W/ FOLIC ACID TABLET (FP) PO SCH (10:32)
[2020-05-18 11:59] LABS: HEMATOCRIT 47.7 % (35.4-49); HEMOGLOBIN 15.8 GM/dL (11.7-16.9); MCH 31.6 pg (25.7-33.7); MCHC 33.1 g/dl (32.0-35.9); MEAN CELL VOLUME 95.7 fl (80-96); MEAN PLT VOLUME 8.8 fl (7.5-11.1); PLATELET COUNT 192 K/MM3 (134-434); RBC 4.98 M/mm3 (4.00-5.60); RDW 13.6 % (11.9-15.9); WHITE BLOOD COUNT 8.2 K/mm3 (4.0-10.0)
[2020-05-18 12:09] LABS: ALBUMIN 3.2 g/dl (3.4-5.0); BILIRUBIN,TOTAL 0.7 mg/dL (0.2-1); BLOOD UREA NITROGEN 22.3 mg/dL (7-18); CALCIUM 8.8 mg/dL (8.5-10.1); POTASSIUM 3.9 mmol/L (3.5-5.1); TOT PROT 7.4 g/dl (6.4-8.2)
--- NOTE | 2020-05-18 14:19 | CONSULT ---
[facility] Psychiatric Consult - Data Date of interview: 05/18/20 Admission source: [facility] Identifying data: Patient is a 54 year old male, father of two, unemployed, resides in an [facility] facility, and is not currently supported with financial assistance. This is one of multiple admissions for patient. Patient admitted to for alcohol dependence. Substance Abuse History: Smoking Cessation. Smoking history: Current every day smoker. Have you smoked in the past 12 months: Yes. Aproximately how many cigarettes per day: 1. Cigars Per Day: 0. Hx Chewing Tobacco Use: No. Initiated information on smoking cessation: Yes. 'Breaking Loose' booklet given: 05/17/20. - Substance & Tx. History. Hx Alcohol Use: Yes. Hx Substance Use: Yes. Substance Use Type: Alcohol, Cocaine. Hx Substance Use Treatment: Yes (09.10 [facility] not completed). - Substances abused. Alcohol. Substance route: Oral. Frequency: Daily. Amount used: 6 of 44 ozs of beer. Age of first use: 14. Date of last use: 05/17/20. Cocaine. Substance route: Inhalation. Frequency: 1-3 times last 30 days (10$). Amount used: 10$. Age of first use: 16. Date of last use: 05/15/20. Heroin. Substance route: Inhalation. Frequency: 1-2 times per week. Amount used: 1 bag. Age of first use: 16. Date of last use: 05/15/20 Medical History: History of open heart surgery, and seizures. Psychiatric History: Patient denies history of psychiatric hospitalizations. Mr. Marte reports seeing a psychiatrist in [place], [place] who he states prescribes him klonopin. Patient reports history of one suicide attempt by attempting to jump out of a window but states that he was stopped by relatives. At present patient reports difficulty sleeping. Physical/Sexual Abuse/Trauma History: denies. Mental Status Exam - Mental Status Exam Alert and Oriented to: Time, Place, Person Cognitive Function: Good Patient Appearance: Well Groomed Mood: Withdrawn Affect: Mood Congruent Patient Behavior: Cooperative Speech Pattern: Appropriate Voice Loudness: Normal Thought Process: Intact, Goal Oriented Thought Disorder: Not Present Hallucinations: Denies Suicidal Ideation: Denies Homicidal Ideation: Denies Insight/Judgement: Poor Sleep: Poorly Appetite: Fair Muscle strength/Tone: Normal Gait/Station: Normal Psychiatric Findings - Problem List ([place] 1, 2,3) (1) Substance induced mood disorder Current Visit: Yes Status: Acute (2) Cocaine abuse Current Visit: Yes Status: Acute (3) Alcohol dependence with uncomplicated withdrawal Current Visit: Yes Status: Acute (4) Methadone maintenance therapy patient Current Visit: Yes Status: Chronic Comment: 140 mg verification pending (5) Nicotine dependence Current Visit: Yes Status: Chronic Qualifiers: Nicotine product type: cigarettes Substance use status: in withdrawal Qualified Code(s): F17.213 - Nicotine dependence, cigarettes, with withdrawal (6) Substance-induced sleep disorder Current Visit: Yes Status: Acute - Initial Treatment Plan Initial Treatment Plan: Psychoeducation provided. Detoxification in progress. Will order Belsorma 10mg HS PRN. Benefits and side effects discussed. Verbal consent given.
--- NOTE | 2020-05-18 14:42 | PN ---
S CIWA - CIWA Score Nausea/Vomitin-Mild Nausea/No Vomiting Muscle Tremors: 2 Anxiety: 2 Agitation: 1-Slight > Activity Paroxysmal Sweats: 1-Minimal Palms Moist Orientation: 0-Oriented Tacttile Disturbances: 0-None Auditory Disturbances: 0-None Visual Disturbances: 2-Mild Sensitivity Headache: 1-Very Mild CIWA-Ar Total Score: 10 BHS Progress Note (SOAP) Subjective: 54 years old male was admitted on 05/17/20 for alcohol withdrawal sx mangement treating with librium detox regiment mr naqvi states that he is taking methadone 120 mg po daily and he was at [facility] two days ago "they gave me 120 methadone" discuss tuesday closing methadone nurse will verify dosage tomorrow mr naqvi refuses to discuss days in [facility] and for what Objective: 05/18/20 14:43 Vital Signs - 24 hr 05/17/20 05/17/20 05/18/20 18:20 20:16 06:38 Temperature 95.6 F L 97.3 F L 98.1 F Pulse Rate 92 H 84 54 L Respiratory 18 18 18 Rate Blood Pressure 118/77 156/104 H 136/98 O2 Sat by Pulse 98 97 Oximetry (%) 05/18/20 05/18/20 08:47 12:49 Temperature 97.1 F L 96.4 F L Pulse Rate 70 71 Respiratory 18 18 Rate Blood Pressure 126/88 141/96 O2 Sat by Pulse 99 Oximetry (%) Laboratory Tests 05/18/20 05/18/20 05/18/20 07:30 07:30 07:30 WBC 8.2 RBC 4.98 Hgb 15.8 Hct 47.7 MCV 95.7 MCH 31.6 MCHC 33.1 RDW 13.6 Plt Count 192 MPV 8.8 Sodium 138 Potassium 3.9 Chloride 102 Carbon Dioxide 29 Anion Gap 7 L BUN 22.3 H Creatinine 1.0 Est GFR (CKD-EPI)AfAm 97.08 Est GFR (CKD-EPI)NonAf 83.76 Random Glucose 87 Calcium 8.8 Total Bilirubin 0.7 AST 19 ALT 20 Alkaline Phosphatase 85 Total Protein 7.4 Albumin 3.2 L Syphilis Serology Non-reactive 05/18/20 14:44 covid pending Assessment: 05/18/20 14:44 alcohol withdrawal Plan: librium regiment
--- NOTE | 2020-05-18 15:11 | EKG ---
Test Reason : Blood Pressure : / mmHG Vent. Rate : 080 BPM Atrial Rate : 080 BPM P-R Int : 126 ms QRS Dur : 140 ms QT Int : 462 ms P-R-T Axes : 068 042 013 degrees QTc Int : 532 ms SINUS RHYTHM WITH MARKED SINUS ARRHYTHMIA RIGHT BUNDLE BRANCH BLOCK ABNORMAL ECG WHEN COMPARED WITH ECG OF 27-JAN-2017 05:38, NO SIGNIFICANT CHANGE WAS FOUND Confirmed by MD Blayne, Renny ([id number]) on 05/18/2020 3:10:56 PM Referred By: Confirmed By:Renny Cisneros MD
[2020-05-18] MEDS: MELATONIN 5 MG TABLETS PO SCH (22:19)
[2020-05-18] MEDS: THIAMINE HCL 100 MG TABLET (FP) PO SCH (22:19)
[2020-05-19] MEDS: chlordiazePOXIDE HCL 25 MG CAPSULE PO SCH ×4 (05:55→22:17)
[2020-05-19] MEDS: hydrOXYzine PAMOATE 25 MG CAPSULE (FP) PO SCH ×5 (05:55→22:16)
[2020-05-19] MEDS ORDERED: METHADONE 40 MG, METHADONE 20 MG PO ONE (09:30)
[2020-05-19] MEDS ORDERED: METHADONE HCL 40 MG DISPERSABLE TABLET ONE (09:43)
[2020-05-19] MEDS ORDERED: METHADONE HCL 10 MG TABLET ONE (09:43)
--- NOTE | 2020-05-19 09:44 | PN ---
[facility] CIWA - CIWA Score Nausea/Vomitin-No Nausea/No Vomiting Muscle Tremors: 1-None Visible, but [place] Anxiety: 3 Agitation: 1-Slight > Activity Paroxysmal Sweats: No Perspiration Orientation: 0-Oriented Tacttile Disturbances: 0-None Auditory Disturbances: 0-None Visual Disturbances: 2-Mild Sensitivity Headache: 0-None Present CIWA-Ar Total Score: 7 S Progress Note (SOAP) Subjective: 54 years old male was admitted on 05/17/20 for alcohol withdrawal sx management treating with librium detox regiment had open heart surgery 2011 "two valves replacement and two stents" mr naqvi states that he was in the pharmacy "last week" 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 his "home nurse" not available for him therefore he "did not take" his medications keno writer/runner called [phone] and [phone] without success as per nurse report list of home medications obtained from methadone program xarelto 20 mg po od furosemide 40mg po od K+ 3.9 metoprolol succinale 50mg po od Vital Signs - 24 hr 05/18/20 05/18/20 05/18/20 12:49 16:43 20:42 Temperature 96.4 F L 97.3 F L 96.8 F L Pulse Rate 71 98 H 99 H Respiratory 18 18 18 Rate Blood Pressure 141/96 132/90 155/96 O2 Sat by Pulse 99 99 99 Oximetry (%) 05/18/20 05/19/20 05/19/20 23:22 06:19 09:06 Temperature 97.1 F L 97.4 F L Pulse Rate 93 H 72 75 Respiratory 18 18 Rate Blood Pressure 136/91 139/86 150/110 H O2 Sat by Pulse 100 100 Oximetry (%) lisinopril 10 mg po od bp elevation resume antihypertensive medications Objective: 05/19/20 09:56 Laboratory Tests 05/18/20 05/18/20 05/18/20 07:30 07:30 07:30 WBC 8.2 RBC 4.98 Hgb 15.8 Hct 47.7 MCV 95.7 MCH 31.6 MCHC 33.1 RDW 13.6 Plt Count 192 MPV 8.8 Sodium 138 Potassium 3.9 Chloride 102 Carbon Dioxide 29 Anion Gap 7 L BUN 22.3 H Creatinine 1.0 Est GFR (CKD-EPI)AfAm 97.08 Est GFR (CKD-EPI)NonAf 83.76 Random Glucose 87 Calcium 8.8 Total Bilirubin 0.7 AST 19 ALT 20 Alkaline Phosphatase 85 Total Protein 7.4 Albumin 3.2 L Syphilis Serology Non-reactive 05/19/20 09:57 covid pending Assessment: 05/19/20 09:57 alcohol withdrawal 05/19/20 09:57 taking methadone 130 mg po daily last dose 05/15/20 05/19/20 09:59 received methadone 20mg po on 05/18/20 around 6 am resume methadone 60mg now and will assess toxicity for possible 70mg later as per patient agreement Plan: librium regiment
[2020-05-19] MEDS: PRENATAL VITAMINS W/ FOLIC ACID TABLET (FP) PO SCH (09:49)
[2020-05-19] MEDS ORDERED: FUROSEMIDE 40 MG TABLET (FP) PO SCH (10:00)
[2020-05-19] MEDS ORDERED: LISINOPRIL 10 MG TABLET PO SCH (10:00)
[2020-05-19] MEDS ORDERED: METHADONE HCL 10 MG TABLET PO ONE ×3 (10:00→14:15)
[2020-05-19] MEDS ORDERED: RIVAROXABAN 20 MG TABLET PO SCH (10:00)
[2020-05-19] MEDS: FUROSEMIDE 40 MG TABLET (FP) PO SCH (10:03)
[2020-05-19] MEDS: LISINOPRIL 10 MG TABLET PO SCH (10:04)
[2020-05-19] MEDS: RIVAROXABAN 20 MG TABLET PO SCH (22:16)
[2020-05-19] MEDS: MELATONIN 5 MG TABLETS PO SCH (22:16)
[2020-05-19] MEDS: THIAMINE HCL 100 MG TABLET (FP) PO SCH (22:17)
[2020-05-19] MEDS: SUVOREXANT 10 MG TABLET PO PRN (22:19)
[2020-05-20] MEDS ORDERED: chlordiazePOXIDE HCL 10 MG CAPSULE PO PRN
[2020-05-20] MEDS: hydrOXYzine PAMOATE 25 MG CAPSULE (FP) PO SCH ×5 (05:21→22:05)
[2020-05-20] MEDS: chlordiazePOXIDE HCL 10 MG CAPSULE PO SCH ×4 (05:21→22:05)
[2020-05-20] MEDS ORDERED: METHADONE HCL 10 MG TABLET ONE (05:22)
[2020-05-20] MEDS: METHADONE 120 MG, METHADONE 10 MG PO SCH (05:23)
[2020-05-20] MEDS ORDERED: METHADONE HCL 40 MG DISPERSABLE TABLET ONE (05:23)
[2020-05-20] MEDS ORDERED: METHADONE 80 MG, METHADONE 10 MG PO SCH (06:00)
[2020-05-20] MEDS ORDERED: METHADONE HCL 10 MG TABLET PO SCH (06:00)
[2020-05-20] MEDS ORDERED: MASKS NR ONE (08:16)
[2020-05-20] MEDS: FUROSEMIDE 40 MG TABLET (FP) PO SCH (10:34)
[2020-05-20] MEDS: LISINOPRIL 10 MG TABLET PO SCH (10:34)
[2020-05-20] MEDS: PRENATAL VITAMINS W/ FOLIC ACID TABLET (FP) PO SCH (10:34)
--- NOTE | 2020-05-20 10:50 | PN ---
S CIWA - CIWA Score Nausea/Vomitin-No Nausea/No Vomiting Muscle Tremors: 2 Anxiety: 2 Agitation: 2 Paroxysmal Sweats: No Perspiration Orientation: 0-Oriented Tacttile Disturbances: 0-None Auditory Disturbances: 0-None Visual Disturbances: 0-None Headache: 1-Very Mild CIWA-Ar Total Score: 7 S Progress Note (SOAP) Subjective: alert,irritable,anxious,interrupted sleep,aching pain,no chest pain,no sob,no dizziness,ambulation on the unit Objective: 05/20/20 17:02 Vital Signs Temperature 96.9 F L 05/20/20 13:07 Pulse Rate 78 05/20/20 13:07 Respiratory Rate 18 05/20/20 13:07 Blood Pressure 134/64 05/20/20 13:07 O2 Sat by Pulse Oximetry (%) 100 05/20/20 13:07 Assessment: 05/20/20 17:02 withdrawal symptom Plan: continue detox librium regimen,continue methadone maintenance 130 mgs po daily,close monitoring
[2020-05-20] MEDS: HYDROCORTISONE 0.5% TOPICAL CREAM 30 GM TUBE TP SCH ×2 (12:11→22:05)
[2020-05-20] MEDS ORDERED: METHADONE HCL 10 MG TABLET PO ONE (13:30)
[2020-05-20] MEDS ORDERED: NICOTINE POLACRILEX 2 MG GUM BUC PRN (14:21)
[2020-05-20] MEDS: RIVAROXABAN 20 MG TABLET PO SCH (17:21)
[2020-05-20] MEDS: THIAMINE HCL 100 MG TABLET (FP) PO SCH (22:05)
[2020-05-20] MEDS: MELATONIN 5 MG TABLETS PO SCH (22:05)
[2020-05-20] MEDS: SUVOREXANT 10 MG TABLET PO PRN (22:07)
[2020-05-21] MEDS ORDERED: METHADONE HCL 10 MG TABLET ONE (04:25)
[2020-05-21] MEDS ORDERED: METHADONE HCL 40 MG DISPERSABLE TABLET ONE (04:25)
[2020-05-21] MEDS: chlordiazePOXIDE HCL 10 MG CAPSULE PO SCH ×2 (05:37→18:34)
[2020-05-21] MEDS: METHADONE 120 MG, METHADONE 10 MG PO SCH (05:38)
[2020-05-21] MEDS: hydrOXYzine PAMOATE 25 MG CAPSULE (FP) PO SCH ×5 (05:38→22:36)
[2020-05-21] MEDS ORDERED: METHADONE HCL 10 MG TABLET PO SCH (06:00)
[2020-05-21] MEDS: LISINOPRIL 10 MG TABLET PO SCH (10:15)
[2020-05-21] MEDS: FUROSEMIDE 40 MG TABLET (FP) PO SCH (10:15)
[2020-05-21] MEDS: HYDROCORTISONE 0.5% TOPICAL CREAM 30 GM TUBE TP SCH ×2 (10:15→22:37)
[2020-05-21] MEDS: PRENATAL VITAMINS W/ FOLIC ACID TABLET (FP) PO SCH (10:16)
--- NOTE | 2020-05-21 12:55 | PN ---
S CIWA - CIWA Score Nausea/Vomitin-No Nausea/No Vomiting Muscle Tremors: None Anxiety: 1-Mildly Anxious Agitation: 1-Slight > Activity Paroxysmal Sweats: No Perspiration Orientation: 0-Oriented Tacttile Disturbances: 1-Very Mild Itch/Numbness Auditory Disturbances: 0-None Visual Disturbances: 0-None Headache: 2-Mild CIWA-Ar Total Score: 5 BHS Progress Note (SOAP) Subjective: alert,irritable,anxious,interrupted sleep,aching pain Objective: 05/21/20 17:24 Vital Signs Temperature 97.8 F 05/21/20 15:35 Pulse Rate 61 05/21/20 15:35 Respiratory Rate 16 05/21/20 15:35 Blood Pressure 106/75 05/21/20 15:35 O2 Sat by Pulse Oximetry (%) 98 05/21/20 15:35 Assessment: 05/21/20 17:24 withdrawal symptom Plan: continue detox librium regimen,continue methadone maintenance 130 mgs/day,discharge in am
[2020-05-21] MEDS: RIVAROXABAN 20 MG TABLET PO SCH (18:34)
[2020-05-21] MEDS: THIAMINE HCL 100 MG TABLET (FP) PO SCH (22:36)
[2020-05-21] MEDS: MELATONIN 5 MG TABLETS PO SCH (22:36)
[2020-05-22] MEDS ORDERED: chlordiazePOXIDE HCL 10 MG CAPSULE PO ONE (05:00)
[2020-05-22] MEDS ORDERED: METHADONE HCL 10 MG TABLET ONE (05:13)
[2020-05-22] MEDS ORDERED: METHADONE HCL 40 MG DISPERSABLE TABLET ONE (05:13)
[2020-05-22] MEDS: hydrOXYzine PAMOATE 25 MG CAPSULE (FP) PO SCH ×2 (05:43→09:23)
[2020-05-22] MEDS: METHADONE 120 MG, METHADONE 10 MG PO SCH (05:44)
[2020-05-22] MEDS: FUROSEMIDE 40 MG TABLET (FP) PO SCH (09:23)
[2020-05-22] MEDS: PRENATAL VITAMINS W/ FOLIC ACID TABLET (FP) PO SCH (09:23)
[2020-05-22] MEDS: LISINOPRIL 10 MG TABLET PO SCH (09:23)
[2020-05-22] MEDS: HYDROCORTISONE 0.5% TOPICAL CREAM 30 GM TUBE TP SCH (09:24)
[2020-05-22 09:45] VITALS: BP 136/99; PULSE 69; TEMP 96.6
--- NOTE | 2020-05-22 10:27 | PN ---
[facility] CIWA - CIWA Score Nausea/Vomitin-No Nausea/No Vomiting Muscle Tremors: None Anxiety: 1-Mildly Anxious Agitation: 0-Normal Activity Paroxysmal Sweats: No Perspiration Orientation: 0-Oriented Tacttile Disturbances: 0-None Auditory Disturbances: 0-None Visual Disturbances: 0-None Headache: 0-None Present CIWA-Ar Total Score: 1 S Progress Note (SOAP) Subjective: alert,no complaint Objective: 05/22/20 12:15 Vital Signs Temperature 96.6 F L 05/22/20 08:33 Pulse Rate 69 05/22/20 08:33 Respiratory Rate 18 05/22/20 08:33 Blood Pressure 136/99 05/22/20 08:33 O2 Sat by Pulse Oximetry (%) 99 05/22/20 06:29 05/22/20 12:15 Laboratory Last Values WBC 8.2 K/mm3 (4.0-10.0) 05/18/20 07:30 RBC 4.98 M/mm3 (4.00-5.60) 05/18/20 07:30 Hgb 15.8 GM/dL (11.7-16.9) 05/18/20 07:30 Hct 47.7 % (35.4-49) 05/18/20 07:30 MCV 95.7 fl (80-96) 05/18/20 07:30 MCH 31.6 pg (25.7-33.7) 05/18/20 07:30 MCHC 33.1 g/dl (32.0-35.9) 05/18/20 07:30 RDW 13.6 % (11.9-15.9) 05/18/20 07:30 Plt Count 192 K/MM3 (134-434) 05/18/20 07:30 MPV 8.8 fl (7.5-11.1) 05/18/20 07:30 Sodium 138 mmol/L (136-145) 05/18/20 07:30 Potassium 3.9 mmol/L (3.5-5.1) 05/18/20 07:30 Chloride 102 mmol/L (98-107) 05/18/20 07:30 Carbon Dioxide 29 mmol/L (21-32) 05/18/20 07:30 Anion Gap 7 MMOL/L (8-16) L 05/18/20 07:30 BUN 22.3 mg/dL (7-18) H 05/18/20 07:30 Creatinine 1.0 mg/dL (0.55-1.3) 05/18/20 07:30 Est GFR (CKD-EPI)AfAm 97.08 05/18/20 07:30 Est GFR (CKD-EPI)NonAf 83.76 05/18/20 07:30 Random Glucose 87 mg/dL (74-106) 05/18/20 07:30 Calcium 8.8 mg/dL (8.5-10.1) 05/18/20 07:30 Total Bilirubin 0.7 mg/dL (0.2-1) 05/18/20 07:30 AST 19 U/L (15-37) 05/18/20 07:30 ALT 20 U/L (13-61) 05/18/20 07:30 Alkaline Phosphatase 85 U/L (45-117) 05/18/20 07:30 Total Protein 7.4 g/dl (6.4-8.2) 05/18/20 07:30 Albumin 3.2 g/dl (3.4-5.0) L 05/18/20 07:30 Syphilis Serology Non-reactive (NONREACTIVE) 05/18/20 07:30 COVID-19 (FENG) Not detected 05/17/20 19:50 Assessment: 05/22/20 12:16 detox completed,no withdrawal symptom Plan: continue detox librium regimen,continue methadone 130 mgs po daily maintenance,follow up with [facility] arrangement
--- NOTE | 2020-05-22 12:23 | DS ---
[facility] Detox Discharge Summary Admission Date: 05/17/20 Discharge Date: 05/22/20 - History Present History: Alcohol Dependence, Cocaine Dependence, MMTP Additional Comments: alert,oriented x 3 ambulation on the unit lung clear on auscultation bilaterally abdomen soft,no distension,no pain and tenderness stable for discharge,detox completed,no withdrawal symptom follow up with after care program [facility] arrangement total time spending on discharge 35 minutes left the unit in stable condition Pertinent Past History: heroin abused hepatitis c history of open heart surgery hypertension history of mitral valve replacement - Physical Exam Results Vital Signs: Vital Signs Temperature 96.6 F L 05/22/20 08:33 Pulse Rate 69 05/22/20 08:33 Respiratory Rate 18 05/22/20 08:33 Blood Pressure 136/99 05/22/20 08:33 O2 Sat by Pulse Oximetry (%) 99 05/22/20 06:29 Pertinent Admission Physical Exam Findings: withdrawal signs and symptom Laboratory Last Values WBC 8.2 K/mm3 (4.0-10.0) 05/18/20 07:30 RBC 4.98 M/mm3 (4.00-5.60) 05/18/20 07:30 Hgb 15.8 GM/dL (11.7-16.9) 05/18/20 07:30 Hct 47.7 % (35.4-49) 05/18/20 07:30 MCV 95.7 fl (80-96) 05/18/20 07:30 MCH 31.6 pg (25.7-33.7) 05/18/20 07:30 MCHC 33.1 g/dl (32.0-35.9) 05/18/20 07:30 RDW 13.6 % (11.9-15.9) 05/18/20 07:30 Plt Count 192 K/MM3 (134-434) 05/18/20 07:30 MPV 8.8 fl (7.5-11.1) 05/18/20 07:30 Sodium 138 mmol/L (136-145) 05/18/20 07:30 Potassium 3.9 mmol/L (3.5-5.1) 05/18/20 07:30 Chloride 102 mmol/L (98-107) 05/18/20 07:30 Carbon Dioxide 29 mmol/L (21-32) 05/18/20 07:30 Anion Gap 7 MMOL/L (8-16) L 05/18/20 07:30 BUN 22.3 mg/dL (7-18) H 05/18/20 07:30 Creatinine 1.0 mg/dL (0.55-1.3) 05/18/20 07:30 Est GFR (CKD-EPI)AfAm 97.08 05/18/20 07:30 Est GFR (CKD-EPI)NonAf 83.76 05/18/20 07:30 Random Glucose 87 mg/dL (74-106) 05/18/20 07:30 Calcium 8.8 mg/dL (8.5-10.1) 05/18/20 07:30 Total Bilirubin 0.7 mg/dL (0.2-1) 05/18/20 07:30 AST 19 U/L (15-37) 05/18/20 07:30 ALT 20 U/L (13-61) 05/18/20 07:30 Alkaline Phosphatase 85 U/L (45-117) 05/18/20 07:30 Total Protein 7.4 g/dl (6.4-8.2) 05/18/20 07:30 Albumin 3.2 g/dl (3.4-5.0) L 05/18/20 07:30 Syphilis Serology Non-reactive (NONREACTIVE) 05/18/20 07:30 COVID-19 (FENG) Not detected 05/17/20 19:50 Vital Signs Temperature 96.6 F L 05/22/20 08:33 Pulse Rate 69 05/22/20 08:33 Respiratory Rate 18 05/22/20 08:33 Blood Pressure 136/99 05/22/20 08:33 O2 Sat by Pulse Oximetry (%) 99 05/22/20 06:29 - Treatment Hospital Course: Detox Protocol Followed, Detoxed Safely, Responded well, Discharged Condition Good, Rehab Referral Accepted Patient has Accepted a Rehab Referral to: [facility] - Medication Discharge Medications: Ambulatory Orders Bupropion HCl [Bupropion HCl Sr] 150 mg PO DAILY 01/26/17 Clonazepam [Klonopin] 1 mg PO BID 01/26/17 traZODone HCL [Desyrel -] 50 mg PO HS 01/26/17 Divalproex [Depakote -] 250 mg PO BID #60 tab 01/27/17 Mirtazapine [Remeron -] 15 mg PO HS #30 tablet 01/27/17 Furosemide 40 mg PO DAILY 05/19/20 Lisinopril [Prinivil] 10 mg PO DAILY 05/19/20 Metoprolol Succinate [Toprol Xl] 50 mg PO DAILY 05/19/20 Rivaroxaban [Xarelto -] 20 mg PO DAILY 05/19/20 - Diagnosis (1) Alcohol dependence with uncomplicated withdrawal Current Visit: Yes Status: Acute (2) Seizure Current Visit: No Status: Acute (3) Bipolar II disorder Current Visit: No Status: Chronic (4) Hypertension Current Visit: No Status: Chronic Qualifiers: Hypertension type: essential hypertension Qualified Code(s): I10 - Essential (primary) hypertension (5) Methadone maintenance therapy patient Current Visit: Yes Status: Chronic (6) Nicotine dependence Current Visit: Yes Status: Chronic Qualifiers: Nicotine product type: cigarettes Substance use status: in withdrawal Qualified Code(s): F17.213 - Nicotine dependence, cigarettes, with withdrawal (7) History of open heart surgery Current Visit: Yes Status: Acute (8) Hepatitis C Current Visit: Yes Status: Acute (9) Cocaine abuse Current Visit: Yes Status: Acute (10) Heroin abuse Current Visit: Yes Status: Acute (11) History of mitral valve replacement Current Visit: Yes Status: Acute - AMA Did Patient Leave Against Medical Advice: No
[2020-05-22 15:04] LABS: PH,URINE 7.5 (5.0-8.0); URINE APPEARANCE CLEAR; URINE BILIRUBIN NEGATIVE (NEGATIVE); URINE COLOR YELLOW; URINE GLUCOSE (UA) NEGATIVE (NEGATIVE); URINE KETONE NEGATIVE (NEGATIVE); URINE LEUK ESTERASE NEGATIVE (NEGATIVE); URINE NITRITE NEGATIVE (NEGATIVE); URINE PROTEIN NEGATIVE (NEGATIVE); URINE UROBILINOGEN 0.2 mg/dL (0.2-1.0)
== END 2020-05-22 12:45 | disposition other institution (70) | DRG 773 ==
LOC: YASAS 12:13 → Y3N 19:11
PROVIDERS: ADMIT Allergy & Immunology; ATTEND Allergy & Immunology
PROC: HZ2ZZZZ Detoxification Services for Substance Abuse Treatment (ICD-10-PCS; principal; 2020-05-17)
DX: F10.230 Alcohol dependence with withdrawal, uncomplicated (principal); F11.20 Opioid dependence, uncomplicated; F14.20 Cocaine dependence, uncomplicated; F17.213 Nicotine dependence, cigarettes, with withdrawal; F19.282 Other psychoactive substance dependence with psychoactive substance-induced sleep disorder; F19.24 Other psychoactive substance dependence with psychoactive substance-induced mood disorder; F31.81 Bipolar II disorder; E78.5 Hyperlipidemia, unspecified; B18.2 Chronic viral hepatitis C; R56.9 Unspecified convulsions; I25.10 Atherosclerotic heart disease of native coronary artery without angina pectoris; I10 Essential (primary) hypertension; Z95.5 Presence of coronary angioplasty implant and graft; Z95.2 Presence of prosthetic heart valve; Z79.01 Long term (current) use of anticoagulants; Z98.890 Other specified postprocedural states; Z86.69 Personal history of other diseases of the nervous system and sense organs; Z59.0 Homelessness
CPT/HCPCS: 36415; 80053; 81003; 85027; 86780; 93005; 93010; U0003

== ENCOUNTER 2020-05-22 13:05 | Inpatient (IN) | payer OTHER ==
[2020-05-22] MEDS ORDERED: PNEUMOC 13-VAL CONJ-DIP CRM/PF 0.5 ML DISP.SYRIN IM ONE (14:20)
[2020-05-22] MEDS ORDERED: guaiFENesin 200 MG/10 ML 10 ML UNIT-DOSE CUPS PO PRN (14:27)
[2020-05-22] MEDS ORDERED: P-EPHED 60MG/TRIPROLIDI 2.5MG TABLET PO PRN (14:27)
[2020-05-22] MEDS ORDERED: MENTHOL/PHENOL 1 EACH UD MM PRN (14:27)
[2020-05-22] MEDS ORDERED: NICOTINE POLACRILEX 2 MG GUM BUC PRN (14:27)
[2020-05-22] MEDS ORDERED: MAG HYDROX/AL HYDROX/SIMETH 30 ML UNIT-DOSE CUP PO PRN (14:27)
[2020-05-22] MEDS ORDERED: LOPERAMIDE HCL 2 MG CAPSULE PO PRN (14:27)
[2020-05-22] MEDS ORDERED: MAGNESIUM CITRATE 300 ML BOTTLE PO PRN (14:27)
[2020-05-22] MEDS ORDERED: ACETAMINOPHEN 325 MG TABLET (FP) PO PRN (14:27)
[2020-05-22] MEDS ORDERED: MAGNESIUM HYDROX 2400MG/30ML ORAL SUSPENSION 30 ML CUP PO PRN (14:27)
[2020-05-22] MEDS ORDERED: IBUPROFEN 400 MG TABLET (FP) PO PRN (14:27)
[2020-05-22] MEDS: RIVAROXABAN 20 MG TABLET PO SCH (17:11)
[2020-05-22] MEDS: hydrOXYzine PAMOATE 25 MG CAPSULE (FP) PO PRN ×2 (17:13→21:13)
--- OUTSIDE RECORDS SUMMARY | 2020-05-22 19:04 | XMS ---
:1965 Author Organization [facility] Support Name Relationship Address Phone UE Unavailable Unavailable Unavailable ALLISON [place] [address] ALLISON CURIEL [place] [address] Re-disclosure Warning The records that you are [...] is protected by Article 27-F of the [facility] Public Health law. If you continue you may haveaccess to information: Regarding HIV / AIDS; Provided by facilities licensed or operated by the [facility] Office of Mental Health; or Provided by the [facility] Office for People With Developmental Disabilities. If such information is present, then the following [facility] mandated warning applies: This information has been [...] law may result in a fine or senior living sentence or both. A general authorization for the release of medical or other information is NOT sufficient authorization for further disclosure. Insurance Providers Payer name Policy type Policy ID Covered Covered republican's Policy P carolin / Coverage republican ID relationship to [employer] ormation type marshall JEREMY [id number] 200 HEALTH NON CAP JEREMY [id number] 200 HEALTH NON CAP
--- OUTSIDE RECORDS SUMMARY | 2020-05-22 19:05 | XMS ---
:1965 Author Organization [facility] Support Name Relationship Address Phone UE Unavailable Unavailable Unavailable [place]ISON [place] [address] ALLISON CURIEL Sister [place] [address] Re-disclosure Warning The records that you are [...] is protected by Article 27-F of the [facility] Public Health law. If you continue you may haveaccess to information: Regarding HIV / AIDS; Provided by facilities licensed or operated by the [facility] Office of Mental Health; or Provided by the [facility] Office for People With Developmental Disabilities. If such information is present, then the following [facility] mandated warning applies: This information has [...] law may result in a fine or correction sentence or both. A general authorization for the release of medical or other information is NOT sufficient authorization for further disclosure. Insurance Providers Payer name Policy type Policy ID Covered Covered libertarian's Policy P carolin / Coverage libertarian ID relationship to [employer] or[employer] type marshall JEREMY [id number] 200 HEALTH NON CAP JEREMY [id number] 200 HEALTH NON CAP
[2020-05-22] MEDS: THIAMINE HCL 100 MG TABLET (FP) PO SCH (21:12)
[2020-05-22] MEDS: MELATONIN 5 MG TABLETS PO SCH (21:12)
[2020-05-22] MEDS: HYDROCORTISONE 0.5% TOPICAL CREAM 30 GM TUBE TP SCH (21:13)
[2020-05-23] MEDS ORDERED: METHADONE HCL 40 MG DISPERSABLE TABLET ONE (05:58)
[2020-05-23] MEDS ORDERED: METHADONE HCL 10 MG TABLET ONE (05:58)
[2020-05-23] MEDS ORDERED: METHADONE HCL 10 MG TABLET PO SCH (06:00)
[2020-05-23] MEDS: hydrOXYzine PAMOATE 25 MG CAPSULE (FP) PO PRN ×3 (06:16→16:38)
[2020-05-23] MEDS: METHADONE 120 MG, METHADONE 10 MG PO SCH (06:16)
[2020-05-23] MEDS ORDERED: RIVAROXABAN 20 MG TABLET PO SCH (10:00)
[2020-05-23] MEDS: NICOTINE 7 MG/24 HOURS TOPICAL PATCH TD SCH (10:11)
[2020-05-23] MEDS: LISINOPRIL 10 MG TABLET PO SCH (10:11)
[2020-05-23] MEDS: PATIENT'S OWN MEDICATION (NON-FORMULARY) (Sofosbuvir/Velpatas/Voxilaprev [Vosevi 400-100-1 PO SCH (10:11)
[2020-05-23] MEDS: PRENATAL VITAMINS W/ FOLIC ACID TABLET (FP) PO SCH (10:11)
[2020-05-23] MEDS: HYDROCORTISONE 0.5% TOPICAL CREAM 30 GM TUBE TP SCH ×2 (10:12→21:06)
[2020-05-23] MEDS: FUROSEMIDE 40 MG TABLET (FP) PO SCH (10:58)
[2020-05-23] MEDS ORDERED: FLU VACCINE (FLULAVAL) PF 60 MCG/0.5 ML SYRINGE 2020-2021 IM ONE (12:00)
[2020-05-23] MEDS ORDERED: PNEUMOCOCCAL 23 VACCINE 0.5 ML VIAL IM ONE (12:00)
--- NOTE | 2020-05-23 16:32 | CONSULT ---
[facility] Psychiatric Consult - Data Date of interview: 05/23/20 Admission source: [facility] Identifying data: Patient is a 54 year old male, father of two, unemployed, resides in an [facility] facility, and is not currently supported with financial assistance. This is one of multiple admissions for patient. Patient admitted to for alcohol dependence. Substance Abuse History: Smoking Cessation. Smoking history: Current every day smoker. Have you smoked in the past 12 months: Yes. Aproximately how many cigarettes per day: 1. Cigars Per Day: 0. Hx Chewing Tobacco Use: No. Initiated information on smoking cessation: Yes. 'Breaking Loose' booklet given: 05/17/20. - Substance & Tx. History. Hx Alcohol Use: Yes. Hx Substance Use: Yes. Substance Use Type: Alcohol, Cocaine. Hx Substance Use Treatment: Yes (09.10 [facility] not completed). - Substances abused. Alcohol. Substance route: Oral. Frequency: Daily. Amount used: 6 of 44 ozs of beer. Age of first use: 14. Date of last use: 05/17/20. Cocaine. Substance route: Inhalation. Frequency: 1-3 times last 30 days (10$). Amount used: 10$. Age of first use: 16. Date of last use: 05/15/20. Heroin. Substance route: Inhalation. Frequency: 1-2 times per week. Amount used: 1 bag. Age of first use: 16. Date of last use: 05/15/20 Medical History: History of open heart surgery, and seizures Psychiatric History: Patient denies history of psychiatric hospitalizations. Mr. Marte reports seeing a psychiatrist in [place], [place] who he states prescribes him klonopin. Mr. Marte reports a history of anxiety disorder. Patient reports history of one suicide attempt by attempting to jump out of a window but states that he was stopped by relatives. At present patient reports difficulty sleeping. Physical/Sexual Abuse/Trauma History: denies. Mental Status Exam - Mental Status Exam Alert and Oriented to: Time, Place, Person Cognitive Function: Good Patient Appearance: Well Groomed Mood: Withdrawn Affect: Mood Congruent Patient Behavior: Cooperative Speech Pattern: Appropriate Voice Loudness: Normal Thought Process: Goal Oriented Thought Disorder: Not Present Hallucinations: Denies Suicidal Ideation: Denies Homicidal Ideation: Denies Insight/Judgement: Poor Sleep: Poorly Appetite: Fair Muscle strength/Tone: Normal Gait/Station: Normal Psychiatric Findings - Problem List (Line [place] 1, 2,3) (1) Alcohol use disorder Current Visit: Yes Status: Acute (2) Cocaine abuse Current Visit: Yes Status: Acute (3) Substance-induced sleep disorder Current Visit: Yes Status: Acute (4) Methadone maintenance therapy patient Current Visit: Yes Status: Chronic Comment: 140 mg verification pending (5) Nicotine dependence Current Visit: Yes Status: Chronic Qualifiers: Nicotine product type: cigarettes Substance use status: in withdrawal Qualified Code(s): F17.213 - Nicotine dependence, cigarettes, with withdrawal - Initial Treatment Plan Initial Treatment Plan: Psychoeducation provided. Detoxification in progress. Will order Belsomra 10mg HS PRN. Benefits and side effects discussed. Verbal consent given.
[2020-05-23] MEDS: RIVAROXABAN 20 MG TABLET PO SCH (18:42)
[2020-05-23] MEDS: THIAMINE HCL 100 MG TABLET (FP) PO SCH (21:06)
[2020-05-23] MEDS: MELATONIN 5 MG TABLETS PO SCH (21:06)
[2020-05-23] MEDS: SUVOREXANT 10 MG TABLET PO PRN (21:07)
[2020-05-24] MEDS ORDERED: METHADONE HCL 40 MG DISPERSABLE TABLET ONE (03:26)
[2020-05-24] MEDS ORDERED: METHADONE HCL 10 MG TABLET ONE (03:27)
[2020-05-24] MEDS: hydrOXYzine PAMOATE 25 MG CAPSULE (FP) PO PRN ×3 (06:10→21:19)
[2020-05-24] MEDS: METHADONE 120 MG, METHADONE 10 MG PO SCH (06:10)
[2020-05-24] MEDS ORDERED: PT OWN MED DRAWER 7, Y5N ONE (08:41)
[2020-05-24] MEDS: PATIENT'S OWN MEDICATION (NON-FORMULARY) (Sofosbuvir/Velpatas/Voxilaprev [Vosevi 400-100-1 PO SCH (09:23)
[2020-05-24] MEDS: FUROSEMIDE 40 MG TABLET (FP) PO SCH (09:23)
[2020-05-24] MEDS: LISINOPRIL 10 MG TABLET PO SCH (09:23)
[2020-05-24] MEDS: NICOTINE 7 MG/24 HOURS TOPICAL PATCH TD SCH (09:24)
[2020-05-24] MEDS: HYDROCORTISONE 0.5% TOPICAL CREAM 30 GM TUBE TP SCH ×2 (09:24→21:20)
[2020-05-24] MEDS: PRENATAL VITAMINS W/ FOLIC ACID TABLET (FP) PO SCH (09:24)
[2020-05-24] MEDS: RIVAROXABAN 20 MG TABLET PO SCH (17:07)
--- NOTE | 2020-05-24 17:07 | PN ---
[facility] Progress Note Note: Patient reports intermittent discomfort in lower Abdomen for the last few weeks. Discomfort tends to be exacerbated when he is sitting up in bed. He also reports presence of a "bulge" in lower abdomen during that time. He notes that he he has seen liquid come out of umbilicus area several times recently. He reports that he had a "blood vessel procedure" on his leg a couple of months ago and that another medical provider recently informed him that current abdominal condition may due to injury incurred during that procedure. However, Patient has not followed with his INDUSTRIAL HYGIENE MANAGER yet. Patient denies N/V. He denies diarrhea or change in Bowel Movement. He denies any unusual urinary complaints (burning, pain, frequency, urgency, hesitancy, visualization of blood in urine). Enlarged area noted surrounding umbilicus when Patient tenses abdominal muscle. Enlarged area likely a herniation of some kind, but uncertain. No wounds, discharge, or fluid of any kind noted on visualization of affected area. VS Stable. Patient afebrile. No significant abnormalities noted on UA done on 05/22/2020. Patient advised to consult Primary Care medical Provider as soon as possible after Discharge from Rehab for further evaluation for this condition. Patient also advised to immediately notify Medical Nursing staff should enlarged area or discomfort at affected site become more severe at any time. He was also advised to avoid lifting heavy objects as much as possible for time being and to elevated feet in bed when lying down to reduce strain on abdomen. Patient verbalized understanding of all recommendations presented to him today. Patient to have follow-up evaluation by Rehab covering medical provider on 05/26/2020. Flakito Valenzuela NP
[2020-05-24] MEDS: THIAMINE HCL 100 MG TABLET (FP) PO SCH (21:19)
[2020-05-24] MEDS: MELATONIN 5 MG TABLETS PO SCH (21:19)
[2020-05-24] MEDS: SUVOREXANT 10 MG TABLET PO PRN (21:20)
[2020-05-25] MEDS ORDERED: METHADONE HCL 10 MG TABLET ONE (03:36)
[2020-05-25] MEDS ORDERED: METHADONE HCL 40 MG DISPERSABLE TABLET ONE (03:36)
[2020-05-25] MEDS: METHADONE 120 MG, METHADONE 10 MG PO SCH (06:19)
[2020-05-25] MEDS: hydrOXYzine PAMOATE 25 MG CAPSULE (FP) PO PRN ×2 (06:19→21:19)
[2020-05-25] MEDS: LISINOPRIL 10 MG TABLET PO SCH (09:35)
[2020-05-25] MEDS: FUROSEMIDE 40 MG TABLET (FP) PO SCH (09:35)
[2020-05-25] MEDS: PATIENT'S OWN MEDICATION (NON-FORMULARY) (Sofosbuvir/Velpatas/Voxilaprev [Vosevi 400-100-1 PO SCH (09:35)
[2020-05-25] MEDS: PRENATAL VITAMINS W/ FOLIC ACID TABLET (FP) PO SCH (09:36)
[2020-05-25] MEDS: HYDROCORTISONE 0.5% TOPICAL CREAM 30 GM TUBE TP SCH ×2 (09:36→21:21)
[2020-05-25] MEDS: NICOTINE 7 MG/24 HOURS TOPICAL PATCH TD SCH (09:36)
[2020-05-25] MEDS: RIVAROXABAN 20 MG TABLET PO SCH (18:21)
[2020-05-25] MEDS: MELATONIN 5 MG TABLETS PO SCH (21:19)
[2020-05-25] MEDS: THIAMINE HCL 100 MG TABLET (FP) PO SCH (21:19)
[2020-05-25] MEDS: SUVOREXANT 10 MG TABLET PO PRN (21:39)
[2020-05-26] MEDS ORDERED: METHADONE HCL 40 MG DISPERSABLE TABLET ONE (03:14)
[2020-05-26] MEDS ORDERED: METHADONE HCL 10 MG TABLET ONE (03:14)
[2020-05-26] MEDS: METHADONE 120 MG, METHADONE 10 MG PO SCH (06:03)
[2020-05-26] MEDS: hydrOXYzine PAMOATE 25 MG CAPSULE (FP) PO PRN ×2 (06:03→21:04)
[2020-05-26] MEDS: FUROSEMIDE 40 MG TABLET (FP) PO SCH (09:58)
[2020-05-26] MEDS: NICOTINE 7 MG/24 HOURS TOPICAL PATCH TD SCH (09:58)
[2020-05-26] MEDS: PRENATAL VITAMINS W/ FOLIC ACID TABLET (FP) PO SCH (09:58)
[2020-05-26] MEDS: PATIENT'S OWN MEDICATION (NON-FORMULARY) (Sofosbuvir/Velpatas/Voxilaprev [Vosevi 400-100-1 PO SCH (09:59)
[2020-05-26] MEDS: LISINOPRIL 10 MG TABLET PO SCH (10:00)
[2020-05-26] MEDS ORDERED: PT OWN MED DRAWER 7, Y5N ONE (10:01)
--- NOTE | 2020-05-26 10:16 | PN ---
S Progress Note Note: Patient seen for c/o hernia discomfort. Patient denies severe abdominal pain, fever, n/v/d. States having symptoms prior to admission 3-4 months. He reports discharge from site-light [facility]- a few days ago but not witnessed by nursing staff. Patient noted touching hernia site with hands frequently during evaluation. Vital Signs Temperature 97.4 F L 05/26/20 05:44 Pulse Rate 68 05/26/20 08:32 Respiratory Rate 18 05/26/20 05:44 Blood Pressure 135/90 05/26/20 08:32 O2 Sat by Pulse Oximetry (%) 96 05/26/20 05:44 PE alert and oriented x 3 skin warm and dry car s1s2 resp cta bl gi soft, bs+, no redness, discharge present, +umbilical hernia ext full rom, amb ad dez A/P: Umbilical hernia will order abdominal binder hand hygiene education provided patient to notify md/rn/clinical data management manager if any discharge occurs for evaluation monitor clinically
[2020-05-26] MEDS: HYDROCORTISONE 0.5% TOPICAL CREAM 30 GM TUBE TP SCH ×2 (10:45→21:05)
[2020-05-26] MEDS: RIVAROXABAN 20 MG TABLET PO SCH (17:47)
[2020-05-26] MEDS: THIAMINE HCL 100 MG TABLET (FP) PO SCH (21:04)
[2020-05-26] MEDS: MELATONIN 5 MG TABLETS PO SCH (21:04)
[2020-05-26] MEDS ORDERED: SUVOREXANT 10 MG TABLET PO PRN (22:05)
[2020-05-27] MEDS ORDERED: METHADONE HCL 40 MG DISPERSABLE TABLET ONE (03:51)
[2020-05-27] MEDS ORDERED: METHADONE HCL 10 MG TABLET ONE (03:51)
[2020-05-27] MEDS: METHADONE 120 MG, METHADONE 10 MG PO SCH (06:26)
[2020-05-27] MEDS: FUROSEMIDE 40 MG TABLET (FP) PO SCH (09:55)
[2020-05-27] MEDS: NICOTINE 7 MG/24 HOURS TOPICAL PATCH TD SCH (09:56)
[2020-05-27] MEDS: PRENATAL VITAMINS W/ FOLIC ACID TABLET (FP) PO SCH (09:56)
[2020-05-27] MEDS: LISINOPRIL 10 MG TABLET PO SCH (09:56)
[2020-05-27] MEDS: HYDROCORTISONE 0.5% TOPICAL CREAM 30 GM TUBE TP SCH ×2 (09:56→21:23)
[2020-05-27] MEDS: PATIENT'S OWN MEDICATION (NON-FORMULARY) (Sofosbuvir/Velpatas/Voxilaprev [Vosevi 400-100-1 PO SCH (09:56)
[2020-05-27] MEDS: RIVAROXABAN 20 MG TABLET PO SCH (17:56)
[2020-05-27] MEDS: MELATONIN 5 MG TABLETS PO SCH (21:23)
[2020-05-27] MEDS: THIAMINE HCL 100 MG TABLET (FP) PO SCH (21:24)
[2020-05-28] MEDS ORDERED: METHADONE HCL 40 MG DISPERSABLE TABLET ONE (04:15)
[2020-05-28] MEDS ORDERED: METHADONE HCL 10 MG TABLET ONE (04:15)
[2020-05-28] MEDS: METHADONE 120 MG, METHADONE 10 MG PO SCH (05:52)
[2020-05-28] MEDS: PRENATAL VITAMINS W/ FOLIC ACID TABLET (FP) PO SCH (09:36)
[2020-05-28] MEDS: LISINOPRIL 10 MG TABLET PO SCH (09:37)
[2020-05-28] MEDS: FUROSEMIDE 40 MG TABLET (FP) PO SCH (09:37)
[2020-05-28] MEDS: PATIENT'S OWN MEDICATION (NON-FORMULARY) (Sofosbuvir/Velpatas/Voxilaprev [Vosevi 400-100-1 PO SCH (09:37)
[2020-05-28] MEDS: hydrOXYzine PAMOATE 25 MG CAPSULE (FP) PO PRN (09:37)
[2020-05-28] MEDS: NICOTINE 7 MG/24 HOURS TOPICAL PATCH TD SCH (09:38)
[2020-05-28] MEDS: HYDROCORTISONE 0.5% TOPICAL CREAM 30 GM TUBE TP SCH ×2 (09:39→21:22)
[2020-05-28] MEDS ORDERED: ONDANSETRON *ODT* 4 MG TABLET SL PRN (15:09)
--- NOTE | 2020-05-28 15:13 | PN ---
S Progress Note Note: Patient c/o nausea and diarrhea. Not vomiting, but says he is moving his bowels frequently an has loose stools. Vital Signs Period Temp Pulse Resp BP Sys/Avila Pulse Ox Last 24 Hr 97 F-97.8 F 70-86 18-18 122-131/74-103 96-99 P/E General: no apparent distress HEENTM: normocephalic, Neck: supple Resp: no use of accessory muscles, respirations unlabored ABD: +BS, surgical scars, rounded Neuro: no cognitive deficits Labs: BUN slightly elevated; albumin slightly low, all other labs wnl. A/P May be related to his hx of hernia, Nausea-zofran ordered; pepcid ordered. Diarrhea-encouraged patient to take imodium
[2020-05-28] MEDS: RIVAROXABAN 20 MG TABLET PO SCH (18:43)
[2020-05-28] MEDS: THIAMINE HCL 100 MG TABLET (FP) PO SCH (21:21)
[2020-05-28] MEDS: MELATONIN 5 MG TABLETS PO SCH (21:22)
[2020-05-28] MEDS: FAMOTIDINE 20 MG TABLET PO SCH (21:22)
[2020-05-29] MEDS ORDERED: METHADONE 120 MG, METHADONE 10 MG PO SCH (06:00)
[2020-05-29] MEDS ORDERED: METHADONE HCL 40 MG DISPERSABLE TABLET ONE (06:44)
[2020-05-29] MEDS ORDERED: METHADONE HCL 10 MG TABLET ONE (06:44)
[2020-05-29 09:11] VITALS: BP 145/99; PULSE 67
[2020-05-29] MEDS: FAMOTIDINE 20 MG TABLET PO SCH ×2 (09:47→21:27)
[2020-05-29] MEDS: LISINOPRIL 10 MG TABLET PO SCH (09:47)
[2020-05-29] MEDS: hydrOXYzine PAMOATE 25 MG CAPSULE (FP) PO PRN ×2 (09:47→21:26)
[2020-05-29] MEDS: PATIENT'S OWN MEDICATION (NON-FORMULARY) (Sofosbuvir/Velpatas/Voxilaprev [Vosevi 400-100-1 PO SCH (09:47)
[2020-05-29] MEDS: PRENATAL VITAMINS W/ FOLIC ACID TABLET (FP) PO SCH (09:47)
[2020-05-29] MEDS: NICOTINE 7 MG/24 HOURS TOPICAL PATCH TD SCH (09:47)
[2020-05-29] MEDS ORDERED: PT OWN MED DRAWER 7, Y5N ONE (09:48)
[2020-05-29] MEDS: FUROSEMIDE 40 MG TABLET (FP) PO SCH (09:48)
[2020-05-29] MEDS: HYDROCORTISONE 0.5% TOPICAL CREAM 30 GM TUBE TP SCH ×2 (09:49→21:26)
[2020-05-29] MEDS: RIVAROXABAN 20 MG TABLET PO SCH (18:15)
[2020-05-29 20:53] VITALS: TEMP 97.9
[2020-05-29] MEDS: MELATONIN 5 MG TABLETS PO SCH (21:26)
[2020-05-29] MEDS: THIAMINE HCL 100 MG TABLET (FP) PO SCH (21:27)
--- NOTE | 2020-05-29 22:08 | DS ---
[facility] Rehab Discharge Summary - [facility] Rehab Discharge Summary Admission Date: 05/22/20 Discharge Date: 05/30/20 - History Present History: Alcohol dependence, Cocaine dependence, MMTP Additional Comments: CLIENT REQUESTING TO LEAVE. REPORTS HE NO LONGER WANTS TO CONTINUE TXMENT. HE IS NOT HAPPY WITH A STAFF ON THE UNIT AND IS WORRIED ABOUT HIS FAMILY. CLIENT IS UPSET AND PACING. ELEVATED B/P NOTED DENIES SX'S OF C.P., SOB, DIZZINESS, N/V, VISUAL DISTURBANCES. SPOKE WITH CLIENT AT LENGTH. EMOTIONAL SUPPORT/ENCOURAGEMENT TO CONTINUE TXMENT PROVIDED. OFFERED TO TRANSFER CLIENT TO ANOTHER UNIT. PROVIDER ALSO SHARED WITH CLIENT DANGERS ASSOCIATED WITH UNTREATED B/P TO INCLUDE STROKE, NH, . CLIENT ACCEPTS RISK AND DECLINES FURTHER TXMENT AND DISCUSSION. HE IS A/O X3, IRRITABLE CV- RRR AMBUALTING W/O DIFFICULTY SKIN DRY INTACT Vital Signs - 24 hr 05/29/20 05/29/20 05/29/20 09:01 15:01 20:35 Temperature 97.4 F L 97.9 F Pulse Rate 67 Respiratory 18 Rate Blood Pressure 145/99 O2 Sat by Pulse 95 98 Oximetry (%) B/P 177/109 P- 87 Pertinent Past History: HEP C HEART SX HTN MVR - Discharge Physical Exam Vital Signs: Vital Signs Temperature 97.9 F 05/29/20 20:35 Pulse Rate 67 05/29/20 09:01 Respiratory Rate 18 05/29/20 09:01 Blood Pressure 145/99 05/29/20 09:01 O2 Sat by Pulse Oximetry (%) 98 05/29/20 20:35 Pertinent Admission Physical Exam Findings: COMPLETED ALCOHOL DETOX FROM 05/17/20-05/22/20. TRANSFERRED TO ON 05/22/20 FOR CONTINUATION OF CARE INPATIENT REHAB SERVICES - Treatment Discharge Condition: Discharge condition good (ASYMPTOMATIC ELEVATED B/P) Hospital Course: SEE ABOVE - Medication Discharge Medications: Ambulatory Orders Bupropion HCl [Bupropion HCl Sr] 150 mg PO DAILY 01/26/17 Clonazepam [Klonopin] 1 mg PO BID 01/26/17 traZODone HCL [Desyrel -] 50 mg PO HS 01/26/17 Divalproex [Depakote -] 250 mg PO BID #60 tab 01/27/17 Mirtazapine [Remeron -] 15 mg PO HS #30 tablet 01/27/17 Furosemide 40 mg PO DAILY 05/19/20 Lisinopril [Prinivil] 10 mg PO DAILY 05/19/20 Metoprolol Succinate [Toprol Xl] 50 mg PO DAILY 05/19/20 Rivaroxaban [Xarelto -] 20 mg PO DAILY 05/19/20 Hydrocortisone 0.5% Cream [Hytone 0.5% Cream -] 1 applic TP BID tube 05/22/20 Methadone [Dolophine -] 130 mg PO DAILY@0600 tablet 05/22/20 Sofosbuvir/Velpatas/Voxilaprev [Vosevi 400-100-100 mg Tablet] 1 each PO DAILY #30 tablet 05/22/20 Sofosbuvir/Velpatas/Voxilaprev [Vosevi 400-100-100 mg Tablet] 1 tab PO DAILY 05/22/20 - Medication-Assisted Treatment (MAT) Medication-Assisted Treatment (MAT): Yes MAT Follow-up Referral: CLIENT IS ON MMTP. WILL RETURN TO HOME PROGRAM IN A.M. - Discharge Instructions Diet, activity, other medical instructions: Diet: Activity: Other medical instructions: - Diagnosis (1) Alcohol use disorder Status: Chronic (2) Cocaine abuse Status: Chronic (3) Drug-induced mood disorder Status: Chronic (4) Hepatitis C Status: Chronic Qualifiers: Viral hepatitis chronicity: chronic (5) Heroin abuse Status: Chronic (6) History of mitral valve replacement Status: Chronic (7) History of open heart surgery Status: Chronic (8) Substance-induced sleep disorder Status: Chronic (9) Bipolar II disorder Status: Chronic (10) Hypertension Status: Chronic Qualifiers: Hypertension type: essential hypertension Qualified Code(s): I10 - Tabitha putnam (primary) hypertension (11) Methadone maintenance therapy patient Status: Chronic - Follow-up Referral Minutes to complete discharge: 30 (MIN) - AMA Did Patient Leave Against Medical Advice: Yes
== END 2020-05-29 22:55 | disposition left against medical advice (07) | DRG 770 ==
LOC: YASAS 13:05 → Y3W 13:06
PROVIDERS: ADMIT Allergy & Immunology; ATTEND Allergy & Immunology
PROC: HZ42ZZZ Group Counseling for Substance Abuse Treatment, Cognitive-Behavioral (ICD-10-PCS; principal; 2020-05-22)
DX: F10.20 Alcohol dependence, uncomplicated (principal); F14.20 Cocaine dependence, uncomplicated; F11.20 Opioid dependence, uncomplicated; F17.210 Nicotine dependence, cigarettes, uncomplicated; G40.909 Epilepsy, unspecified, not intractable, without status epilepticus; I10 Essential (primary) hypertension; B18.2 Chronic viral hepatitis C; K42.9 Umbilical hernia without obstruction or gangrene; Z95.2 Presence of prosthetic heart valve; Z79.01 Long term (current) use of anticoagulants; Z91.5 Personal history of self-harm; Z56.0 Unemployment, unspecified; Z59.0 Homelessness
CPT/HCPCS: 90732; G0009; Q0162; Q2036

== ENCOUNTER 2020-10-21 12:58 | Inpatient (IN) | payer OTHER ==
[2020-10-21 15:06] VITALS: BMI 26.6
[2020-10-21] MEDS ORDERED: NICOTINE POLACRILEX 2 MG GUM BUC PRN (15:23)
[2020-10-21] MEDS ORDERED: BISMUTH SUBSALICYLATE 524 MG/30 ML UD PO PRN (15:23)
[2020-10-21] MEDS ORDERED: MAGNESIUM HYDROX 2400MG/30ML ORAL SUSPENSION 30 ML CUP PO PRN (15:23)
[2020-10-21] MEDS ORDERED: ACETAMINOPHEN 325 MG TABLET (FP) PO PRN ×2 (15:23)
[2020-10-21] MEDS ORDERED: ONDANSETRON *ODT* 4 MG TABLET SL PRN (15:23)
[2020-10-21] MEDS ORDERED: MAG HYDROX/AL HYDROX/SIMETH 30 ML UNIT-DOSE CUP PO PRN (15:23)
[2020-10-21] MEDS ORDERED: MAGNESIUM CITRATE 300 ML BOTTLE PO PRN (15:23)
[2020-10-21] MEDS ORDERED: MENTHOL/PHENOL 1 EACH UD MM PRN (15:23)
[2020-10-21] MEDS ORDERED: chlordiazePOXIDE HCL 25 MG CAPSULE PO PRN (15:23)
[2020-10-21] MEDS ORDERED: IBUPROFEN 400 MG TABLET (FP) PO PRN (15:23)
[2020-10-21] MEDS: chlordiazePOXIDE HCL 25 MG CAPSULE PO SCH ×2 (17:21→22:19)
[2020-10-21] MEDS: METHOCARBAMOL 500 MG TABLET PO PRN (17:24)
[2020-10-21 17:33] LABS: POTASSIUM 4.2 mmol/L (3.5-5.1)
[2020-10-21 17:35] LABS: HEMATOCRIT 43.6 % (35.4-49); HEMOGLOBIN 14.9 GM/dL (11.7-16.9); MCH 31.5 pg (25.7-33.7); MCHC 34.2 g/dl (32.0-35.9); MEAN CELL VOLUME 92.2 fl (80-96); MEAN PLT VOLUME 8.5 fl (7.5-11.1); PLATELET COUNT 209 K/MM3 (134-434); RBC 4.73 M/mm3 (4.00-5.60); RDW 13.8 % (11.9-15.9); WHITE BLOOD COUNT 8.3 K/mm3 (4.0-10.0)
[2020-10-21 17:51] LABS: ALBUMIN 3.6 g/dl (3.4-5.0); BLOOD UREA NITROGEN 21.2 mg/dL (7-18)
[2020-10-21 17:54] LABS: CALCIUM 8.8 mg/dL (8.5-10.1)
[2020-10-21 17:58] LABS: CREATININE 1.3 mg/dL (0.55-1.3)
[2020-10-21 17:59] LABS: BILIRUBIN,TOTAL 0.4 mg/dL (0.2-1); TOT PROT 7.8 g/dl (6.4-8.2)
[2020-10-21] MEDS ORDERED: hydrOXYzine PAMOATE 25 MG CAPSULE (FP) PO SCH (18:00)
[2020-10-21] MEDS ORDERED: MELATONIN 5 MG TABLETS PO SCH (22:00)
[2020-10-21] MEDS: THIAMINE HCL 100 MG TABLET (FP) PO SCH (22:19)
[2020-10-22] MEDS: chlordiazePOXIDE HCL 25 MG CAPSULE PO SCH ×2 (05:23→10:29)
[2020-10-22] MEDS ORDERED: METHADONE HCL 10 MG TABLET PO SCH (07:45)
[2020-10-22] MEDS ORDERED: METHADONE 120 MG, METHADONE 10 MG PO ONE (08:00)
[2020-10-22] MEDS ORDERED: METHADONE HCL 10 MG TABLET ONE (09:08)
[2020-10-22] MEDS ORDERED: METHADONE HCL 40 MG DISPERSABLE TABLET ONE (09:08)
[2020-10-22] MEDS: PRENATAL VITAMINS W/ FOLIC ACID TABLET (FP) PO SCH (09:17)
[2020-10-22] MEDS: LISINOPRIL 10 MG TABLET PO SCH (09:19)
[2020-10-22] MEDS: FUROSEMIDE 40 MG TABLET (FP) PO SCH (09:19)
[2020-10-22] MEDS: PATIENT'S OWN MEDICATION (NON-FORMULARY) (Sofosbuvir/Velpatas/Voxilaprev [Vosevi 400-100-1 PO SCH (09:23)
[2020-10-22] MEDS: RIVAROXABAN 20 MG TABLET PO SCH (10:28)
[2020-10-22] MEDS ORDERED: LORazepam 1 MG TABLET PO PRN (13:45)
[2020-10-22] MEDS: LORazepam 2 MG TABLET PO SCH ×2 (17:50→22:02)
[2020-10-22] MEDS: THIAMINE HCL 100 MG TABLET (FP) PO SCH (22:03)
[2020-10-22] MEDS: SUVOREXANT 10 MG TABLET PO PRN (22:06)
[2020-10-23] MEDS ORDERED: METHADONE HCL 40 MG DISPERSABLE TABLET ONE (04:08)
[2020-10-23] MEDS ORDERED: METHADONE HCL 10 MG TABLET ONE (04:08)
[2020-10-23] MEDS ORDERED: chlordiazePOXIDE HCL 25 MG CAPSULE PO SCH (05:00)
[2020-10-23] MEDS: LORazepam 2 MG TABLET PO SCH ×4 (05:14→22:14)
[2020-10-23] MEDS: METHADONE 120 MG, METHADONE 10 MG PO SCH (05:14)
[2020-10-23] MEDS: PRENATAL VITAMINS W/ FOLIC ACID TABLET (FP) PO SCH (10:25)
[2020-10-23] MEDS: FUROSEMIDE 40 MG TABLET (FP) PO SCH (10:26)
[2020-10-23] MEDS: RIVAROXABAN 20 MG TABLET PO SCH (10:26)
[2020-10-23] MEDS: LISINOPRIL 10 MG TABLET PO SCH (10:26)
[2020-10-23] MEDS ORDERED: LOPERAMIDE HCL 2 MG CAPSULE PO PRN (14:32)
[2020-10-23] MEDS: THIAMINE HCL 100 MG TABLET (FP) PO SCH (22:15)
[2020-10-23] MEDS: SUVOREXANT 10 MG TABLET PO PRN (22:15)
[2020-10-24] MEDS ORDERED: chlordiazePOXIDE HCL 10 MG CAPSULE PO PRN
[2020-10-24] MEDS ORDERED: METHADONE HCL 10 MG TABLET ONE (04:31)
[2020-10-24] MEDS ORDERED: METHADONE HCL 40 MG DISPERSABLE TABLET ONE (04:31)
[2020-10-24] MEDS: LORazepam 1 MG TABLET PO SCH ×5 (04:55→22:18)
[2020-10-24] MEDS: METHADONE 120 MG, METHADONE 10 MG PO SCH (05:00)
[2020-10-24] MEDS ORDERED: chlordiazePOXIDE HCL 10 MG CAPSULE PO SCH (05:00)
[2020-10-24] MEDS: PATIENT'S OWN MEDICATION (NON-FORMULARY) (Sofosbuvir/Velpatas/Voxilaprev [Vosevi 400-100-1 PO SCH ×2 (08:37→22:17)
[2020-10-24] MEDS: FUROSEMIDE 40 MG TABLET (FP) PO SCH (09:59)
[2020-10-24] MEDS: LISINOPRIL 10 MG TABLET PO SCH (09:59)
[2020-10-24] MEDS: RIVAROXABAN 20 MG TABLET PO SCH (09:59)
[2020-10-24] MEDS: PRENATAL VITAMINS W/ FOLIC ACID TABLET (FP) PO SCH (10:00)
[2020-10-24] MEDS: THIAMINE HCL 100 MG TABLET (FP) PO SCH (22:18)
[2020-10-25] MEDS ORDERED: LORazepam 0.5 MG TABLET PO PRN
[2020-10-25] MEDS ORDERED: METHADONE HCL 10 MG TABLET ONE (04:25)
[2020-10-25] MEDS ORDERED: METHADONE HCL 40 MG DISPERSABLE TABLET ONE (04:26)
[2020-10-25] MEDS ORDERED: chlordiazePOXIDE HCL 10 MG CAPSULE PO SCH (05:00)
[2020-10-25] MEDS ORDERED: LORazepam 0.5 MG TABLET PO SCH (05:00)
[2020-10-25] MEDS: METHADONE 120 MG, METHADONE 10 MG PO SCH (05:33)
[2020-10-25] MEDS: METHOCARBAMOL 500 MG TABLET PO PRN (06:04)
[2020-10-25 06:25] VITALS: BP 146/95; PULSE 65; TEMP 98.1
[2020-10-26] MEDS ORDERED: LORazepam 0.5 MG TABLET PO ONE (05:00)
[2020-10-26] MEDS ORDERED: chlordiazePOXIDE HCL 10 MG CAPSULE PO ONE (05:00)
== END 2020-10-25 09:45 | disposition home or self-care (01) | DRG 773 ==
LOC: YASAS 12:58 → Y3N 15:59
PROVIDERS: ADMIT Allergy & Immunology; ATTEND Allergy & Immunology
PROC: HZ2ZZZZ Detoxification Services for Substance Abuse Treatment (ICD-10-PCS; principal; 2020-10-21)
DX: F10.230 Alcohol dependence with withdrawal, uncomplicated (principal); F13.230 Sedative, hypnotic or anxiolytic dependence with withdrawal, uncomplicated; F11.20 Opioid dependence, uncomplicated; F17.210 Nicotine dependence, cigarettes, uncomplicated; F31.81 Bipolar II disorder; F19.24 Other psychoactive substance dependence with psychoactive substance-induced mood disorder; F41.9 Anxiety disorder, unspecified; G47.00 Insomnia, unspecified; I10 Essential (primary) hypertension; E78.5 Hyperlipidemia, unspecified; B18.2 Chronic viral hepatitis C; Z62.810 Personal history of physical and sexual abuse in childhood; R94.31 Abnormal electrocardiogram [ECG] [EKG]; Z95.2 Presence of prosthetic heart valve; Z79.01 Long term (current) use of anticoagulants; Z59.0 Homelessness
CPT/HCPCS: 36415; 80053; 85027; 86780; 93005; 93010; C9803; U0003